=== PATIENT | male | born 1950 | race Caucasian/White ===

== ENCOUNTER 2020-06-25 11:22 | Inpatient (IN) | payer MEDICARE, MEDICAID ==
--- NOTE | 2020-06-25 11:23 | EDM.PDOC ---
ED HPI GENERAL MEDICAL PROBLEM - General Chief Complaint: Respiratory Problem Stated Complaint: IN BY AMBULANCE Time Seen by Provider: 06/25/20 11:23 Source of Information: Reports: Patient, EMS, RN, RN Notes Reviewed History Limitations: Reports: No Limitations - History of Present Illness INITIAL COMMENTS - FREE TEXT/NARRATIVE: Pt arrives to ER with complaints of increased shortness of breath worsening over the past 1 week. Pt is on continuous supplemental home oxygen at 5L/min. Pt states he was unable to get O2 saturation above 90% today. EMS arrived and found pt to be 82% on 5L, and put him on a non rebreather at 12L and was able to get him to 99%. He said this morning he felt as he couldn't catch his breath and felt like he was "in trouble" respiratory quinonez. Denies chest pain. Admits to some increasing lower extremity edema. Denies fever, chills, cough, or any COVID exposures. Onset: Gradual Duration: Week(s): (1), Constant, Getting Worse Location: Reports: Chest, Generalized Severity: Moderate Improves with: Reports: None Worsens with: Reports: Other (Activity) Associated Symptoms: Reports: No Other Symptoms Treatments [employer]: Reports: Breathing Treatments, Oxygen - Related Data Allergies Allergy/AdvReac Type Severity Reaction Status Date / Time No Known Allergies Allergy Verified 06/25/20 12:21 Past Medical History Cardiovascular History: Reports: CAD, Heart Failure, Hypertension Respiratory History: Reports: Asthma, COPD (Continuous supplemental oxygen dependent at 5L/min.), SOB Gastrointestinal History: Reports: Fatty Liver Genitourinary History: Reports: Chronic Renal Insuffiency, Renal Disease Endocrine/Metabolic History: Reports: Obesity/BMI 30+ Social & Family History - Family History Family Medical History: Noncontributory - Tobacco Use Smoking Status *Q: Former Smoker Tobacco Use Within Last Twelve Months: Cigarettes - Living Situation & Occupation Occupation: Retired ED ROS GENERAL - Review of Systems Review Of Systems: Comprehensive ROS is negative, except as noted in HPI. ED EXAM, GENERAL - Physical Exam Exam: See Below Exam Limited By: No Limitations General Appearance: Alert, No Apparent Distress, Other (Chronically ill but non- toxic appearing) Eye Exam: Bilateral Eye: Normal Inspection Ears: Hearing Grossly Normal Nose: Normal Inspection Throat/Mouth: Normal Inspection, Normal Lips, Normal Voice, No Airway Compromise Head: Atraumatic, Normocephalic Neck: Normal Inspection, Non-Tender Respiratory/Chest: No Respiratory Distress, No Accessory Muscle Use, Chest Non- Tender, Decreased Breath Sounds, Wheezing. No: Crackles, Rales, Rhonchi, Stridor Cardiovascular: Regular Rate, Rhythm, Other (+1 B/L lower extremity pitting edema L>R with a compression stocking on the left leg.) GI/Abdominal: Normal Bowel Sounds, Soft, Non-Tender, Other (Umbilical piercing). No: Guarding, Rigid, Rebound (Male) Exam: Deferred Rectal (Males) Exam: Deferred Back Exam: Normal Inspection Extremities: Pedal Edema. No: Joint Swelling Neurological: Alert, Oriented, No Motor/Sensory Deficits Psychiatric: Normal Mood, Flat Affect Skin Exam: Warm, Dry, Intact, Normal Color, No Rash EKG INTERPRETATION EKG Date: 06/25/20 Time: 11:53 Rhythm: Other (SR) Rate (Beats/Min): 85 [place]: Normal P-Wave: Present QRS: Wide (nonspecific IVCD) ST-T: Normal QT: Normal Comparison: NA - No Prior EKG EKG Interpretation Comments: No acute ischemic changes. Course - Vital Signs Last Recorded V/S: Last Vital Signs Temp 98.9 F 06/25/20 11:12 Pulse 90 06/25/20 12:12 Resp 28 H 06/25/20 11:12 BP 143/66 H 06/25/20 11:12 Pulse Ox 95 06/25/20 11:12 - Orders/Labs/Meds Orders: Active Orders 24 hr Category Date Time Status EKG 12 Lead [EKG Documentation Completion] [RC] STAT Care 06/25/20 11:38 Active Peripheral IV Care [RC] . DIRECTED Care 06/25/20 11:24 Active RT Aerosol Therapy [RC] ASDIRECTED Care 06/25/20 11:41 Active CULTURE BLOOD [BC] Stat Lab 06/25/20 12:00 Received CULTURE BLOOD [BC] Stat Lab 06/25/20 12:04 Received Sodium Chloride 0.9% [Saline Flush] Med 06/25/20 11:24 Active 10 ml FLUSH ASDIRECTED PRN Blood Culture x2 Reflex Set [OM.PC] Stat Oth 06/25/20 11:24 Ordered Peripheral IV Insertion Adult [OM.PC] Stat Oth 06/25/20 11:24 Ordered Medication Orders Sodium Chloride (Saline Flush) 10 ml FLUSH ASDIRECTED PRN PRN Reason: Keep Vein Open Last Admin: 06/25/20 12:25 Dose: 10 ml Documented by: MORENA Labs: Laboratory Tests 06/25/20 06/25/20 06/25/20 Range/Units 11:18 12:00 12:00 WBC 9.2 (5.0-10.0) 10^3/uL RBC 3.65 L (4.6-6.2) 10^6/uL Hgb 11.2 L (14.0-18.0) g/dL Hct 34.1 L (40.0-54.0) % MCV 93.4 (80-100) fL MCH 30.7 (27.0-34.0) pg MCHC 32.8 L (33.0-35.0) g/dL Plt Count 178 (150-450) 10^3/uL Neut % (Auto) 91.4 H (42.2-75.2) % Lymph % (Auto) 2.1 L (20.5-50.1) % [place] % (Auto) 6.0 (2-8) % Eos % (Auto) 0.2 L (1.0-3.0) % Baso % (Auto) 0.3 (0.0-1.0) % Sodium 129 L (136-145) mmol/L Potassium 5.4 H (3.5-5.1) mmol/L Chloride 93 L (98-107) mmol/L Carbon Dioxide 28 (21-32) mmol/L Anion Gap 13.4 H (7-13) mEq/L BUN 42 H (7-18) mg/dL Creatinine 3.07 H (0.70-1.30) mg/dL Est Cr Clr Drug Dosing TNP Estimated GFR (MDRD) 20 BUN/Creatinine Ratio 13.7 (No establ ref range) Glucose 98 (74-99) mg/dL Lactic Acid (0.4-2.0) mmol/L Calcium 9.1 (8.5-10.1) mg/dL Total Bilirubin 0.8 (0.2-1.0) mg/dL AST 18 (15-37) U/L ALT 21 (16-63) U/L Alkaline Phosphatase 69 (46-116) U/L Troponin I 0.019 (0.000-0.056) ng/mL B-Natriuretic Peptide 785 H (0-100) pg/ml Total Protein 6.5 (6.4-8.2) g/dL Albumin 3.5 (3.4-5.0) g/dL Globulin 3.0 Albumin/Globulin Ratio 1.2 COVID-19 ([facility]) Negative (NEGATIVE) 06/25/20 Range/Units 12:00 WBC (5.0-10.0) 10^3/uL RBC (4.6-6.2) 10^6/uL Hgb (14.0-18.0) g/dL Hct (40.0-54.0) % MCV (80-100) fL MCH (27.0-34.0) pg MCHC (33.0-35.0) g/dL Plt Count (150-450) 10^3/uL Neut % (Auto) (42.2-75.2) % Lymph % (Auto) (20.5-50.1) % [place] % (Auto) (2-8) % Eos % (Auto) (1.0-3.0) % Baso % (Auto) (0.0-1.0) % Sodium (136-145) mmol/L Potassium (3.5-5.1) mmol/L Chloride (98-107) mmol/L Carbon Dioxide (21-32) mmol/L Anion Gap (7-13) mEq/L BUN (7-18) mg/dL Creatinine (0.70-1.30) mg/dL Est Cr Clr Drug Dosing Estimated GFR (MDRD) BUN/Creatinine Ratio (No establ ref range) Glucose (74-99) mg/dL Lactic Acid 1.0 (0.4-2.0) mmol/L Calcium (8.5-10.1) mg/dL Total Bilirubin (0.2-1.0) mg/dL AST (15-37) U/L ALT (16-63) U/L Alkaline Phosphatase (46-116) U/L Troponin I (0.000-0.056) ng/mL B-Natriuretic Peptide (0-100) pg/ml Total Protein (6.4-8.2) g/dL Albumin (3.4-5.0) g/dL Globulin Albumin/Globulin Ratio COVID-19 ([facility]) (NEGATIVE) Meds: Medications Generic Name Dose Route Start Last Admin Trade Name Freq PRN Reason Stop Dose Admin Sodium Chloride 10 ml 06/25/20 11:24 06/25/20 12:25 Saline Flush FLUSH 10 ml ASDIRECTED PRN Administration Keep Vein Open Discontinued Medications Generic Name Dose Route Start Last Admin Trade Name Freq PRN Reason Stop Dose Admin Albuterol/Ipratropium 3 ml 06/25/20 11:41 06/25/20 12:11 Duoneb 3.0-0.5 Mg/3 Ml NEB 06/25/20 11:42 3 ml ONETIME ONE Administration Methylprednisolone Sodium Succinate 125 mg 06/25/20 11:24 06/25/20 12:25 Solu-Medrol IVPUSH 06/25/20 11:25 125 mg ONETIME ONE Administration - Radiology Interpretation Free Text/Narrative:: [facility] Final Radiology Report Call: [phone] assistance Online chat: [email or web address] Name: JOSE GOMEZ Age: 69Years M Date: 06/25/2020 SSN: -- : [id number] Study: CR CHEST 1V FRONTAL Requesting Physician: LES WOODARD Images: 1 Addl Studies: Provided Clinical History: shortness of breath Contrast: Contrast Medium: Contrast Amount: Contrast Method: CONFIDENTIALITY STATEMENT This report is intended only for use by the referring physician, and only in accordance with law. If you received this in error, call [phone]. Page 1 of 1 PROCEDURE INFORMATION: Exam: XR Chest, 1 View Exam date and time: 06/25/2020 12:20 PM Age: 69 years old Clinical indication: Shortness of breath TECHNIQUE: Imaging protocol: XR of the chest Views: 1 view. COMPARISON: No relevant prior studies available. FINDINGS: Lungs: There is mild hazy appearance of the right mid and lower lung field. Pleural space: No pleural effusion. No pneumothorax. Heart/Mediastinum: . There is tortuosity and mild calcification of the aorta. There is mild cardiomegaly. Bones/joints: Unremarkable. Soft tissues: Osseous and soft tissue structures are unremarkable. IMPRESSION: 1. Cannot exclude right mid and lower lung field ground-glass infiltrates. Recommend CT chest for further characterization. 2. Mild cardiomegaly. Thank you for allowing us to participate in the care of your patient. Dictated and Authenticated by: Kisha Noel MD 06/25/2020 12:34 PM Central Time ([place] & [place]) Departure - Departure Time of Disposition: 12:54 (admitted to Dr. Valencia) Disposition: Admitted As Inpatient 68 Condition: Fair Clinical Impression: Acute exacerbation of chronic obstructive pulmonary disease (COPD) Chronic CHF (congestive heart failure) Qualifiers: Heart failure type: unspecified Qualified Code(s): I50.9 - Heart failure, unspecified CKD (chronic kidney disease) Qualifiers: Chronic kidney disease stage: unspecified stage Qualified Code(s): N18.9 - Chronic kidney disease, unspecified Acute on chronic respiratory failure Qualifiers: Respiratory failure complication: hypoxia Qualified Code(s): J96.21 - Acute and chronic respiratory failure with hypoxia - Discharge Information *PRESCRIPTION DRUG MONITORING PROGRAM REVIEWED*: Not Applicable *COPY OF PRESCRIPTION DRUG MONITORING REPORT IN PATIENT JU: Not Applicable Forms: ED Department Discharge Sepsis Event Note (ED) - Focused Exam Vital Signs: Vital Signs Temp Pulse Pulse Resp BP Pulse Ox 06/25/20 12:12 90 06/25/20 11:12 98.9 F 86 28 H 143/66 H 95 - My Orders Last 24 Hours: My Active Orders 06/25/20 11:24 Peripheral IV Care [RC] . DIRECTED Sodium Chloride 0.9% [Saline Flush] 10 ml FLUSH ASDIRECTED PRN Blood Culture x2 Reflex Set [OM.PC] Stat Peripheral IV Insertion Adult [OM.PC] Stat 06/25/20 11:38 EKG 12 Lead [EKG Documentation Completion] [RC] STAT 06/25/20 11:41 RT Aerosol Therapy [RC] ASDIRECTED 06/25/20 12:00 CULTURE BLOOD [BC] Stat 06/25/20 12:04 CULTURE BLOOD [BC] Stat - Assessment/Plan Last 24 Hours: My Active Orders 06/25/20 11:24 Peripheral IV Care [RC] . DIRECTED Sodium Chloride 0.9% [Saline Flush] 10 ml FLUSH ASDIRECTED PRN Blood Culture x2 Reflex Set [OM.PC] Stat Peripheral IV Insertion Adult [OM.PC] Stat 06/25/20 11:38 EKG 12 Lead [EKG Documentation Completion] [RC] STAT 06/25/20 11:41 RT Aerosol Therapy [RC] ASDIRECTED 06/25/20 12:00 CULTURE BLOOD [BC] Stat 06/25/20 12:04 CULTURE BLOOD [BC] Stat
[2020-06-25] MEDS ORDERED: methylPREDNISolone Sodium Succinate 125 MG/2 ML SDV IVPUSH ONE (11:24)
[2020-06-25] MEDS ORDERED: Sodium Chloride 0.9% 10 ML Syringe FLUSH PRN (11:24)
[2020-06-25] MEDS ORDERED: Albuterol/Ipratropium 3.0-0.5 MG/3 ML Neb Soln NEB ONE (11:41)
[2020-06-25 12:32] LABS: ANION GAP 13.4 mEq/L (7-13); CHLORIDE,CL 93 mmol/L (98-107); SODIUM,NA 129 mmol/L (136-145)
--- NOTE | 2020-06-25 12:35 | CR ---
PROCEDURE INFORMATION: Exam: XR Chest, 1 View Exam date and time: 06/25/2020 12:20 PM Age: 69 years old Clinical indication: Shortness of breath TECHNIQUE: Imaging protocol: XR of the chest Views: 1 view. COMPARISON: No relevant prior studies available. FINDINGS: Lungs: There is mild hazy appearance of the right mid and lower lung field. Pleural space: No pleural effusion. No pneumothorax. Heart/Mediastinum: . There is tortuosity and mild calcification of the aorta. There is mild cardiomegaly. Bones/joints: Unremarkable. Soft tissues: Osseous and soft tissue structures are unremarkable. IMPRESSION: 1. Cannot exclude right mid and lower lung field ground-glass infiltrates. Recommend CT chest for further characterization. 2. Mild cardiomegaly.
[2020-06-25] MEDS ORDERED: Albuterol/Ipratropium 3.0-0.5 MG/3 ML Neb Soln NEB PRN (13:29)
[2020-06-25] MEDS ORDERED: Zolpidem 5 MG Tab PO PRN (13:54)
[2020-06-25] MEDS ORDERED: Ondansetron 4 MG Tab.DIS PO PRN (13:54)
--- NOTE | 2020-06-25 14:06 | PCM.HP ---
H&P History of Present Illness - General Date of Service: 06/25/20 Admit Problem/Dx: Admission Diagnosis/Problem Admission Diagnosis/Problem COPD, Severe chronic obstructive pulmonary disease Source of Information: Patient - History of Present Illness Initial Comments - Free Text/Narative: 69-year-old gentleman with a chronic hypoxemic respiratory failure requiring 5 L nasal cannula oxygen. The patient has COPD, chronic lower extremity edema. Presented with worsening shortness of breath over the period of weeks. There is no associated chest pain, fever, cough. He has no pulmonary medicine provider. He also has chronic kidney disease. He was told that he is close to dialysis. Has been taking diuretics but despite that his legs are more swollen lately. - Related Data Allergies/Adverse Reactions: Allergies Allergy/AdvReac Type Severity Reaction Status Date / Time No Known Allergies Allergy Verified 06/25/20 13:31 Home Medications: Home Meds Albuterol Sulfate [Albuterol Sulfate Hfa] 1 - 2 puff IH Q4HR PRN 06/25/20 [History] Allopurinol [Zyloprim] 300 mg PO DAILY 06/25/20 [History] Aspirin 325 mg PO DAILY 06/25/20 [History] Clopidogrel Bisulfate [Clopidogrel] 75 mg PO DAILY 06/25/20 [History] Cyanocobalamin (Vitamin B-12) [B-12] 1,000 mcg PO BID 06/25/20 [History] Furosemide 40 mg PO BID 06/25/20 [History] Losartan Potassium 100 mg PO DAILY 06/25/20 [History] Magnesium Oxide [Magnesium] 400 mg PO BID 06/25/20 [History] Mometasone/Formoterol [Dulera 50 Mcg-5 Mcg Inhaler] 1 puff IH BID 06/25/20 [History] Potassium Chloride [Klor-Con 10] 20 meq PO BID 06/25/20 [History] Valsartan 160 mg PO DAILY 06/25/20 [History] acetaZOLAMIDE [Acetazolamide] 125 mg PO .48HOURS 06/25/20 [History] amLODIPine Besylate [Amlodipine Besylate] 10 mg PO DAILY 06/25/20 [History] predniSONE [Prednisone] 5 mg PO DAILY 06/25/20 [History] Past Medical History Cardiovascular History: Reports: CAD, Heart Failure, Hypertension Respiratory History: Reports: Asthma, COPD, SOB Gastrointestinal History: Reports: Fatty Liver Genitourinary History: Reports: Chronic Renal Insuffiency, Renal Disease Endocrine/Metabolic History: Reports: Obesity/BMI 30+ - Past Surgical History GI Surgical History: Reports: Appendectomy Social & Family History - Family History Family Medical History: Noncontributory - Tobacco Use Smoking Status *Q: Never Smoker - Caffeine Use Caffeine Use: Reports: Coffee - Living Situation & Occupation Occupation: Retired H&P Review of Systems - Review of Systems: Review Of Systems: See Below General: Denies: Fever, Chills Pulmonary: Reports: Shortness of Breath, Cough (Chronic). Denies: Sputum Cardiovascular: Reports: Dyspnea on Exertion, Edema. Denies: Chest Pain, Palpitations Gastrointestinal: Denies: Abdominal Pain Genitourinary: Denies: Dysuria Neurological: Denies: Confusion Exam - Exam Exam: See Below - Vital Signs Vital Signs: Last Vital Signs Temp 98.4 F 06/25/20 13:30 Pulse 98 06/25/20 13:30 Resp 24 H 06/25/20 13:30 BP 127/65 06/25/20 13:30 Pulse Ox 90 L 06/25/20 13:55 Weight: 200 lb 3.2 oz - Exam Quality Assessment: Supplemental Oxygen General: Alert, Oriented Lungs: Normal Respiratory Effort, Decreased Breath Sounds. No: Rales, Wheezing Cardiovascular: Regular Rate, Regular Rhythm GI/Abdominal Exam: Normal Bowel Sounds, Soft, Non-Tender Extremities: Pedal Edema (2+ bilateral) Neuro Extensive - Mental Status: Alert, Oriented x3, Normal Mood/Affect Psychiatric: Alert, Normal Mood - Patient Data Lab Results Last 24 hrs: Laboratory Results - last 24 hr 06/25/20 06/25/20 06/25/20 Range/Units 11:18 12:00 12:00 WBC 9.2 (5.0-10.0) 10^3/uL RBC 3.65 L (4.6-6.2) 10^6/uL Hgb 11.2 L (14.0-18.0) g/dL Hct 34.1 L (40.0-54.0) % MCV 93.4 (80-100) fL MCH 30.7 (27.0-34.0) pg MCHC 32.8 L (33.0-35.0) g/dL Plt Count 178 (150-450) 10^3/uL Neut % (Auto) 91.4 H (42.2-75.2) % Lymph % (Auto) 2.1 L (20.5-50.1) % [place] % (Auto) 6.0 (2-8) % Eos % (Auto) 0.2 L (1.0-3.0) % Baso % (Auto) 0.3 (0.0-1.0) % Sodium 129 L (136-145) mmol/L Potassium 5.4 H (3.5-5.1) mmol/L Chloride 93 L (98-107) mmol/L Carbon Dioxide 28 (21-32) mmol/L Anion Gap 13.4 H (7-13) mEq/L BUN 42 H (7-18) mg/dL Creatinine 3.07 H (0.70-1.30) mg/dL Est Cr Clr Drug Dosing TNP Estimated GFR (MDRD) 20 BUN/Creatinine Ratio 13.7 (No establ ref range) Glucose 98 (74-99) mg/dL Lactic Acid (0.4-2.0) mmol/L Calcium 9.1 (8.5-10.1) mg/dL Total Bilirubin 0.8 (0.2-1.0) mg/dL AST 18 (15-37) U/L ALT 21 (16-63) U/L Alkaline Phosphatase 69 (46-116) U/L Troponin I 0.019 (0.000-0.056) ng/mL B-Natriuretic Peptide 785 H (0-100) pg/ml Total Protein 6.5 (6.4-8.2) g/dL Albumin 3.5 (3.4-5.0) g/dL Globulin 3.0 Albumin/Globulin Ratio 1.2 COVID-19 ([facility]) Negative (NEGATIVE) 06/25/20 Range/Units 12:00 WBC (5.0-10.0) 10^3/uL RBC (4.6-6.2) 10^6/uL Hgb (14.0-18.0) g/dL Hct (40.0-54.0) % MCV (80-100) fL MCH (27.0-34.0) pg MCHC (33.0-35.0) g/dL Plt Count (150-450) 10^3/uL Neut % (Auto) (42.2-75.2) % Lymph % (Auto) (20.5-50.1) % [place] % (Auto) (2-8) % Eos % (Auto) (1.0-3.0) % Baso % (Auto) (0.0-1.0) % Sodium (136-145) mmol/L Potassium (3.5-5.1) mmol/L Chloride (98-107) mmol/L Carbon Dioxide (21-32) mmol/L Anion Gap (7-13) mEq/L BUN (7-18) mg/dL Creatinine (0.70-1.30) mg/dL Est Cr Clr Drug Dosing Estimated GFR (MDRD) BUN/Creatinine Ratio (No establ ref range) Glucose (74-99) mg/dL Lactic Acid 1.0 (0.4-2.0) mmol/L Calcium (8.5-10.1) mg/dL Total Bilirubin (0.2-1.0) mg/dL AST (15-37) U/L ALT (16-63) U/L Alkaline Phosphatase (46-116) U/L Troponin I (0.000-0.056) ng/mL B-Natriuretic Peptide (0-100) pg/ml Total Protein (6.4-8.2) g/dL Albumin (3.4-5.0) g/dL Globulin Albumin/Globulin Ratio COVID-19 ([facility]) (NEGATIVE) Result Diagrams: 06/25/20 12:00 06/25/20 12:00 - Problem List (1) Acute congestive heart failure SNOMED Code(s): 77160102 ICD Code: I50.9 - HEART FAILURE, UNSPECIFIED Status: Acute Current Visit: Yes (2) HTN (hypertension) SNOMED Code(s): 26257262 ICD Code: I10 - ESSENTIAL (PRIMARY) HYPERTENSION Status: Acute Current Visit: Yes (3) CKD (chronic kidney disease) stage 3, GFR 30-59 ml/min SNOMED Code(s): 452160111 ICD Code: N18.3 - CHRONIC KIDNEY DISEASE, STAGE 3 (MODERATE) Status: Acute Current Visit: Yes (4) Hyponatremia SNOMED Code(s): 71782423 ICD Code: E87.1 - HYPO-OSMOLALITY AND HYPONATREMIA Status: Acute Current Visit: Yes (5) Hyperkalemia SNOMED Code(s): 31409597 ICD Code: E87.5 - HYPERKALEMIA Status: Acute Current Visit: Yes (6) CAD (coronary artery disease) SNOMED Code(s): 56572390 ICD Code: I25.10 - ATHSCL HEART DISEASE OF [place] CORONARY ARTERY W/O ANG PCTRS Status: Acute Current Visit: Yes (7) Acute exacerbation of chronic obstructive pulmonary disease (COPD) SNOMED Code(s): 890470368 ICD Code: J44.1 - CHRONIC OBSTRUCTIVE PULMONARY DISEASE W (ACUTE) EXACERBATION Status: Acute Current Visit: No (8) Acute on chronic respiratory failure SNOMED Code(s): 46590167 ICD Code: J96.20 - ACUTE AND CHR RESP FAILURE, UNSP W HYPOXIA OR HYPERCAPNIA Status: Acute Current Visit: No Qualifiers: Respiratory failure complication: hypoxia Qualified Code(s): J96.21 - Acute and chronic respiratory failure with hypoxia (9) CKD (chronic kidney disease) SNOMED Code(s): 012954042 ICD Code: N18.9 - CHRONIC KIDNEY DISEASE, UNSPECIFIED Status: Acute Current Visit: No Qualifiers: Chronic kidney disease stage: unspecified stage Qualified Code(s): N18.9 - Chronic kidney disease, unspecified Problem List Initiated/Reviewed/Updated: Yes Orders Last 24hrs: Active Orders 24 hr Category Date Time Status Admission Diagnosis [ADT] Stat ADT 06/25/20 13:02 Ordered Admission Status [Patient Status] [ADT] Routine ADT 06/25/20 13:02 Active Antiembolic Devices [RC] PER UNIT ROUTINE Care 06/25/20 13:55 Ordered EKG 12 Lead [EKG Documentation Completion] [RC] STAT Care 06/25/20 11:38 Active Oxygen Therapy [RC] PRN Care 06/25/20 13:54 Ordered RT Aerosol Therapy [RC] ASDIRECTED Care 06/25/20 11:41 Active RT Aerosol Therapy [RC] ASDIRECTED Care 06/25/20 13:30 Active RT Aerosol Therapy [RC] ASDIRECTED Care 06/25/20 13:30 Active Up With Assistance [RC] ASDIRECTED Care 06/25/20 13:54 Ordered VTE/DVT Education [RC] PER UNIT ROUTINE Care 06/25/20 13:54 Ordered Vital Signs [RC] Q4H Care 06/25/20 13:54 Ordered 2 Gram Sodium Diet [DIET] Diet 06/25/20 Dinner Ordered Echo Comp wo Cont [US] Routine Exams 06/25/20 13:52 Ordered Venous Doppler Lwr Ext Bi [US] Routine Exams 06/25/20 13:50 Ordered BASIC METABOLIC PANEL,BMP [CHEM] AM Lab 06/26/20 05:11 Ordered CULTURE BLOOD [BC] Stat Lab 06/25/20 12:00 Received CULTURE BLOOD [BC] Stat Lab 06/25/20 12:04 Received CULTURE BLOOD [BC] Stat Lab 06/25/20 13:58 Ordered CULTURE BLOOD [BC] Stat Lab 06/25/20 13:58 Ordered CULTURE SPUTUM + SMEAR [RM] Routine Lab 06/25/20 13:58 Ordered DD [D-DIMER QUANTITATIVE] [COAG] Routine Lab 06/25/20 13:57 Ordered Acetaminophen [TylenoL] Med 06/25/20 13:54 Ordered 650 mg PO Q4H PRN Albuterol/Ipratropium [DuoNeb 3.0-0.5 MG/3 ML] Med 06/25/20 13:29 Active 3 ml NEB Q2H PRN Albuterol/Ipratropium [DuoNeb 3.0-0.5 MG/3 ML] Med 06/25/20 18:00 Active 3 ml NEB Q6HRRT Aspirin Med 06/26/20 09:00 Ordered 325 mg PO DAILY Azithromycin [Zithromax] 500 mg Med 06/25/20 14:00 Ordered Sodium Chloride 0.9% [Normal Saline (AdvBag)] 250 ml IV Q24H Budesonide [Pulmicort] Med 06/25/20 18:00 Active 0.5 mg NEB BIDRT Clopidogrel [Plavix] Med 06/26/20 09:00 Ordered 75 mg PO DAILY Cyanocobalamin (Vitamin B12) [Vitamin B12] Med 06/25/20 21:00 Ordered 1,000 mcg PO BID Docusate Sodium [Colace] Med 06/25/20 13:54 Ordered 100 mg PO BID PRN Furosemide [Lasix] Med 06/25/20 14:00 Ordered 40 mg IV Q8H Heparin Sodium Med 06/25/20 14:00 Ordered 5,000 units SUBCUT Q8HR Losartan Potassium [Losartan Potassium] Med 06/26/20 09:00 Ordered 100 mg PO DAILY Ondansetron [Zofran ODT] Med 06/25/20 13:54 Ordered 4 mg PO Q6H PRN Sodium Chloride 0.9% [Saline Flush] Med 06/25/20 11:24 Active 10 ml FLUSH ASDIRECTED PRN Sodium Chloride 0.9% [Saline Flush] Med 06/25/20 13:54 Ordered 10 ml FLUSH ASDIRECTED PRN Zolpidem [Ambien] Med 06/25/20 13:54 Ordered 5 mg PO BEDTIME PRN acetaZOLAMIDE [Acetazolamide] Med 06/25/20 13:45 Ordered 125 mg PO .48HOURS allopurinoL [Zyloprim] Med 06/26/20 09:00 Ordered 300 mg PO DAILY amLODIPine Besylate [Amlodipine Besylate] Med 06/26/20 09:00 Ordered 10 mg PO DAILY cefTRIAXone [Rocephin] 1 gm Med 06/25/20 14:00 Ordered Sodium Chloride 0.9% [Normal Saline] 50 ml IV Q24H Antiembolic Hose [OM.PC] Per Unit Routine Oth 06/25/20 13:54 Ordered Blood Culture x2 Reflex Set [OM.PC] Stat Oth 06/25/20 11:24 Ordered Blood Culture x2 Reflex Set [OM.PC] Stat Oth 06/25/20 13:58 Ordered Peripheral IV Insertion Adult [OM.PC] Stat Oth 06/25/20 11:24 Ordered Saline Lock Insert [OM.PC] Routine Oth 06/25/20 13:54 Ordered Resuscitation Status Routine Resus Stat 06/25/20 13:54 Ordered Medication Orders Acetaminophen (Tylenol) 650 mg PO Q4H PRN PRN Reason: Pain (Mild 1-3)/fever Albuterol/Ipratropium (Duoneb 3.0-0.5 Mg/3 Ml) 3 ml NEB Q6HRRT [place] Albuterol/Ipratropium (Duoneb 3.0-0.5 Mg/3 Ml) 3 ml NEB Q2H PRN PRN Reason: sob Allopurinol (Zyloprim) 300 mg PO DAILY [place] Aspirin (Aspirin) 325 mg PO DAILY [place] Budesonide (Pulmicort) 0.5 mg NEB BIDRT [place] Clopidogrel Bisulfate (Plavix) 75 mg PO DAILY [facility] Cyanocobalamin (Vitamin B12) 1,000 mcg PO BID [facility] Docusate Sodium (Colace) 100 mg PO BID PRN PRN Reason: Constipation Furosemide (Lasix) 40 mg IV Q8H [facility] Heparin Sodium (Porcine) (Heparin Sodium) 5,000 units SUBCUT Q8HR [facility] Azithromycin 500 mg/ Sodium (Chloride) 250 mls @ 250 mls/hr IV Q24H [place] Ceftriaxone Sodium 1 gm/ (Sodium Chloride) 50 mls @ 100 mls/hr IV Q24H [place] Non-Formulary Medication (Acetazolamide [Acetazolamide]) 125 mg PO .48HOURS [place] Non-Formulary Medication (Amlodipine Besylate [Amlodipine Besylate]) 10 mg PO DAILY [place] Non-Formulary Medication (Losartan Potassium [Losartan Potassium]) 100 mg PO DAILY [facility] Ondansetron HCl (Zofran Odt) 4 mg PO Q6H PRN PRN Reason: nausea, able to take PO Sodium Chloride (Saline Flush) 10 ml FLUSH ASDIRECTED PRN PRN Reason: Keep Vein Open Last Admin: 06/25/20 12:25 Dose: 10 ml Documented by: MORENA Sodium Chloride (Saline Flush) 10 ml FLUSH ASDIRECTED PRN PRN Reason: Keep Vein Open Zolpidem Tartrate (Ambien) 5 mg PO BEDTIME PRN PRN Reason: Sleep Assessment/Plan Comment:: 69-year-old gentleman with a chronic hypoxemic respiratory failure requiring 5 L nasal cannula oxygen. The patient has COPD, chronic lower extremity edema. Presented with worsening shortness of breath over the period of weeks. There is no associated chest pain, fever, cough. He has no pulmonary medicine provider. He also has chronic kidney disease. He was told that he is close to dialysis. Has been taking diuretics but despite that his legs are more swollen lately. Acute on chronic hypoxemic respiratory failure. The patient has been using 5 L nasal cannula oxygen but significantly hypoxemic on that level. Well supplement oxygen as needed Concern for acute COPD exacerbation With chronic prednisone 5 mg use Well treat with IV Solu-Medrol Use Pulmicort DuoNeb as needed and scheduled CAD Likely acute congestive heart failure exacerbation, per records (2014) diastolic dysfunction Increasing lower extremity edema, elevated BNP Will obtain echocardiogram for further characterization The patient has not had cardiology evaluation in the past Well start IV diuretics Continue acetazolamide Continue aspirin, Plavix, losartan Follow electrolytes and renal function Acute pulmonary embolism is less likely CT to evaluate would be risky with the renal failure Well obtain DDimer Chest x-rays questioning possible groundglass opacities, pneumonia Clinically does not appear to have ongoing infection We will obtain sputum culture, blood culture Well monitor closely in the meantime start ceftriaxone and azithromycin hyperkalemia, hyponatremia Hold potassium supplement Will follow with diuretics Chronic kidney disease stage 3-4 Monitor with diuretics Hypertension Continue Norvasc, losartan DVT prophylaxis with subcutaneous heparin
[2020-06-25] MEDS ORDERED: Furosemide 40 MG/4 ML VIAL IV SCH (15:00)
[2020-06-25] MEDS: Heparin Sodium 5,000 Units/ML Vial SUBCUT SCH ×2 (15:22→21:18)
[2020-06-25] MEDS: cefTRIAXone 1 GM in Sodium Chloride 0.9% 50 ML IV SCH (16:08)
[2020-06-25] MEDS: Furosemide 40 MG/4 ML VIAL IV SCH ×2 (16:09→21:16)
[2020-06-25] MEDS: Azithromycin 500 MG in Sodium Chloride 0.9% 250 ML IV SCH (17:04)
[2020-06-25] MEDS: Budesonide 0.5 MG/2 ML Neb Susp NEB SCH (18:13)
[2020-06-25] MEDS: Albuterol/Ipratropium 3.0-0.5 MG/3 ML Neb Soln NEB SCH (18:13)
[2020-06-25] MEDS: Cyanocobalamin (Vitamin B12) 1,000 MCG Tab PO SCH (21:17)
[2020-06-26] MEDS: Albuterol/Ipratropium 3.0-0.5 MG/3 ML Neb Soln NEB SCH ×4 (01:58→17:23)
[2020-06-26] MEDS: Furosemide 40 MG/4 ML VIAL IV SCH ×3 (05:21→21:51)
[2020-06-26] MEDS: Heparin Sodium 5,000 Units/ML Vial SUBCUT SCH ×3 (05:22→21:51)
[2020-06-26 06:43] LABS: ANION GAP 13.2 mEq/L (7-13)
[2020-06-26] MEDS: Budesonide 0.5 MG/2 ML Neb Susp NEB SCH ×2 (07:40→17:24)
[2020-06-26] MEDS: amLODIPine 5 MG Tab PO SCH (08:51)
[2020-06-26] MEDS: acetaZOLAMIDE 250 MG Tab PO SCH (08:51)
[2020-06-26] MEDS: Cyanocobalamin (Vitamin B12) 1,000 MCG Tab PO SCH ×2 (08:51→21:48)
[2020-06-26] MEDS: Clopidogrel 75 MG Tab PO SCH (08:51)
[2020-06-26] MEDS: Losartan 50 MG Tab PO SCH (08:51)
[2020-06-26] MEDS ORDERED: Allopurinol 300 MG Tab PO SCH (09:00)
--- NOTE | 2020-06-26 12:20 | PCM.PN ---
- General Info Date of Service: 06/26/20 Admission Dx/Problem (Free Text): Admission Diagnosis/Problem Admission Diagnosis/Problem COPD, Severe chronic obstructive pulmonary disease Subjective Update: Shortness of breath is still moderate, worse with activity. Oxygen use is somewhat better and now down to 8 L/m. Initially after admission he was at 10 but his baseline is 5 L/m. No associated chest pain Lower extremity edema has improved but still present Duration of illness is days. No associated fever or chills. - Review of Systems General: Denies: Fever Pulmonary: Reports: Shortness of Breath Cardiovascular: Reports: Edema Genitourinary: Denies: Dysuria Neurological: Denies: Confusion - Patient Data Vitals - Most Recent: Last Vital Signs Temp 97.2 F 06/26/20 08:00 Pulse 94 06/26/20 08:00 Resp 20 06/26/20 08:00 BP 138/76 06/26/20 08:51 Pulse Ox 94 L 06/26/20 08:00 Weight - Most Recent: 199 lb I&O - Last 24 Hours: Intake & Output 06/25/20 06/26/20 06/26/20 22:59 06:59 14:59 Intake Total 320 240 Balance 320 240 Lab Results Last 24 Hours: Laboratory Results - last 24 hr 06/25/20 06/25/20 06/25/20 Range/Units 12:00 12:00 12:00 D-Dimer, Quantitative 903 H (0-400) ng/mL Sodium 129 L (136-145) mmol/L Potassium 5.4 H (3.5-5.1) mmol/L Chloride 93 L (98-107) mmol/L Carbon Dioxide 28 (21-32) mmol/L Anion Gap 13.4 H (7-13) mEq/L BUN 42 H (7-18) mg/dL Creatinine 3.07 H (0.70-1.30) mg/dL Est Cr Clr Drug Dosing TNP Estimated GFR (MDRD) 20 BUN/Creatinine Ratio 13.7 (No establ ref range) Glucose 98 (74-99) mg/dL Lactic Acid 1.0 (0.4-2.0) mmol/L Calcium 9.1 (8.5-10.1) mg/dL Total Bilirubin 0.8 (0.2-1.0) mg/dL AST 18 (15-37) U/L ALT 21 (16-63) U/L Alkaline Phosphatase 69 (46-116) U/L Troponin I 0.019 (0.000-0.056) ng/mL B-Natriuretic Peptide 785 H (0-100) pg/ml Total Protein 6.5 (6.4-8.2) g/dL Albumin 3.5 (3.4-5.0) g/dL Globulin 3.0 Albumin/Globulin Ratio 1.2 06/26/20 Range/Units 05:45 D-Dimer, Quantitative (0-400) ng/mL Sodium 133 L (136-145) mmol/L Potassium 5.2 H (3.5-5.1) mmol/L Chloride 97 L (98-107) mmol/L Carbon Dioxide 28 (21-32) mmol/L Anion Gap 13.2 H (7-13) mEq/L BUN 50 H (7-18) mg/dL Creatinine 3.14 H (0.70-1.30) mg/dL Est Cr Clr Drug Dosing 19.12 Estimated GFR (MDRD) 20 BUN/Creatinine Ratio (No establ ref range) Glucose 176 H (74-99) mg/dL Lactic Acid (0.4-2.0) mmol/L Calcium 8.9 (8.5-10.1) mg/dL Total Bilirubin (0.2-1.0) mg/dL AST (15-37) U/L ALT (16-63) U/L Alkaline Phosphatase (46-116) U/L Troponin I (0.000-0.056) ng/mL B-Natriuretic Peptide (0-100) pg/ml Total Protein (6.4-8.2) g/dL Albumin (3.4-5.0) g/dL Globulin Albumin/Globulin Ratio Juan Results Last 24 Hours: Microbiology 06/25/20 12:04 Aerobic Blood Culture - Preliminary Blood - Venous - Lab Draw NO GROWTH AFTER 1 DAY Anaerobic Blood Culture - Preliminary NO GROWTH AFTER 1 DAY 06/25/20 12:00 Aerobic Blood Culture - Preliminary Blood - Venous NO GROWTH AFTER 1 DAY Anaerobic Blood Culture - Preliminary NO GROWTH AFTER 1 DAY Med Orders - Current: Current Medications Acetaminophen (Tylenol) 650 mg PO Q4H PRN PRN Reason: Pain (Mild 1-3)/fever Acetazolamide (Diamox) [address] [facility] Last Admin: 06/26/20 08:51 Dose: 125 mg Documented by: Albuterol/Ipratropium (Duoneb 3.0-0.5 Mg/3 Ml) [address] [facility] Last Admin: 06/26/20 01:58 Dose: 3 ml Documented by: Albuterol/Ipratropium (Duoneb 3.0-0.5 Mg/3 Ml) 3 ml NEB Q2H PRN PRN Reason: sob Last Admin: 06/25/20 21:25 Dose: 3 ml Documented by: Amlodipine Besylate (Norvasc) [address] [facility] Last Admin: 06/26/20 08:51 Dose: 10 mg Documented by: Aspirin (Aspirin) [address] [facility] Budesonide (Pulmicort) 0.[address] [facility] Last Admin: 06/25/20 18:13 Dose: 0.5 mg Documented by: Clopidogrel Bisulfate (Plavix) [address] [facility] Last Admin: 06/26/20 08:51 Dose: 75 mg Documented by: Cyanocobalamin (Vitamin B12) 1,[address] [facility] Last Admin: 06/26/20 08:51 Dose: 1,000 mcg Documented by: Docusate Sodium (Colace) 100 mg PO BID PRN PRN Reason: Constipation Furosemide (Lasix) [address] [facility] Last Admin: 06/26/20 05:21 Dose: 40 mg Documented by: Heparin Sodium (Porcine) (Heparin Sodium) 5,[address] [facility] Last Admin: 06/26/20 05:22 Dose: 5,000 units Documented by: Azithromycin 500 mg/ Sodium (Chloride) 250 mls @ 250 mls/hr IV Q24H [facility] Last Infusion: 06/25/20 19:00 Dose: Infused Documented by: Ceftriaxone Sodium 1 gm/ (Sodium Chloride) 50 mls @ 100 mls/hr IV Q24H [facility] Last Infusion: 06/25/20 19:12 Dose: Infused Documented by: Losartan Potassium (Cozaar) [address] [facility] Last Admin: 06/26/20 08:51 Dose: 100 mg Documented by: Ondansetron HCl (Zofran Odt) 4 mg PO Q6H PRN PRN Reason: nausea, able to take PO Sodium Chloride (Saline Flush) 10 ml FLUSH ASDIRECTED PRN PRN Reason: Keep Vein Open Zolpidem Tartrate (Ambien) 5 mg PO BEDTIME PRN PRN Reason: Sleep Discontinued Medications Albuterol/Ipratropium (Duoneb 3.0-0.5 Mg/3 Ml) 3 ml NEB ONETIME ONE Stop: 06/25/20 11:42 Last Admin: 06/25/20 12:11 Dose: 3 ml Documented by: Allopurinol (Zyloprim) [address] [facility] Last Admin: 06/26/20 12:09 Dose: Not Given Documented by: Furosemide (Lasix) [address] [facility] Last Admin: 06/25/20 17:39 Dose: Not Given Documented by: Methylprednisolone Sodium Succinate (Solu-Medrol) 125 mg IVPUSH ONETIME ONE Stop: 06/25/20 11:25 Last Admin: 06/25/20 12:25 Dose: 125 mg Documented by: Sodium Chloride (Saline Flush) 10 ml FLUSH ASDIRECTED PRN PRN Reason: Keep Vein Open Last Admin: 06/25/20 12:25 Dose: 10 ml Documented by: - Exam Quality Assessment: Supplemental Oxygen General: Alert Lungs: Normal Respiratory Effort, Decreased Breath Sounds. No: Rales, Wheezing Cardiovascular: Regular Rate, Regular Rhythm GI/Abdominal Exam: Normal Bowel Sounds, Soft, Non-Tender Extremities: Pedal Edema Skin: Warm, Dry Neurological: No New Focal Deficit Psy/Mental Status: Alert, Normal Affect, Normal Mood Sepsis Event Note - Evaluation Sepsis Screening Result: No Definite Risk - Focused Exam Vital Signs: Vital Signs Temp Pulse Pulse Resp BP BP Pulse Ox 06/26/20 08:51 138/76 06/26/20 08:00 97.2 F 94 20 138/76 94 L 06/26/20 01:00 97.1 F 93 22 H 148/71 H 96 - Problem List & Annotations (1) Acute congestive heart failure SNOMED Code(s): 61873640 Code(s): I50.9 - HEART FAILURE, UNSPECIFIED Status: Acute Current Visit: Yes (2) HTN (hypertension) SNOMED Code(s): 11217377 Code(s): I10 - ESSENTIAL (PRIMARY) HYPERTENSION Status: Acute Current Visit: Yes (3) CKD (chronic kidney disease) stage 3, GFR 30-59 ml/min SNOMED Code(s): 651313546 Code(s): N18.3 - CHRONIC KIDNEY DISEASE, STAGE 3 (MODERATE) Status: Acute Current Visit: Yes (4) Hyponatremia SNOMED Code(s): 76450271 Code(s): E87.1 - HYPO-OSMOLALITY AND HYPONATREMIA Status: Acute Current Visit: Yes (5) Hyperkalemia SNOMED Code(s): 71958871 Code(s): E87.5 - HYPERKALEMIA Status: Acute Current Visit: Yes (6) CAD (coronary artery disease) SNOMED Code(s): 92346023 Code(s): I25.10 - ATHSCL HEART DISEASE OF [place] CORONARY ARTERY W/O ANG PCTRS Status: Acute Current Visit: Yes (7) Acute exacerbation of chronic obstructive pulmonary disease (COPD) SNOMED Code(s): 261402870 Code(s): J44.1 - CHRONIC OBSTRUCTIVE PULMONARY DISEASE W (ACUTE) EXACERBATION Status: Acute Current Visit: No (8) Acute on chronic respiratory failure SNOMED Code(s): 83299562 Code(s): J96.20 - ACUTE AND CHR RESP FAILURE, UNSP W HYPOXIA OR HYPERCAPNIA Status: Acute Current Visit: No Qualifiers: Respiratory failure complication: hypoxia Qualified Code(s): J96.21 - Acute and chronic respiratory failure with hypoxia (9) CKD (chronic kidney disease) SNOMED Code(s): 523185060 Code(s): N18.9 - CHRONIC KIDNEY DISEASE, UNSPECIFIED Status: Acute Current Visit: No Qualifiers: Chronic kidney disease stage: unspecified stage Qualified Code(s): N18.9 - Chronic kidney disease, unspecified - Problem List Review Problem List Initiated/Reviewed/Updated: Yes - My Orders Last 24 Hours: My Active Orders 06/25/20 13:29 Albuterol/Ipratropium [DuoNeb 3.0-0.5 MG/3 ML] 3 ml NEB Q2H PRN 06/25/20 13:30 RT Aerosol Therapy [RC] ASDIRECTED RT Aerosol Therapy [RC] ASDIRECTED 06/25/20 13:50 Venous Doppler Lwr Ext Bi [US] Routine 06/25/20 13:52 Echo Comp wo Cont [US] Routine 06/25/20 13:54 Oxygen Therapy [RC] PRN Up With Assistance [RC] ASDIRECTED Vital Signs [RC] 04,08,12,16,20,00 Acetaminophen [TylenoL] 650 mg PO Q4H PRN Docusate Sodium [Colace] 100 mg PO BID PRN Ondansetron [Zofran ODT] 4 mg PO Q6H PRN Sodium Chloride 0.9% [Saline Flush] 10 ml FLUSH ASDIRECTED PRN Zolpidem [Ambien] 5 mg PO BEDTIME PRN Antiembolic Hose [OM.PC] Per Unit Routine Saline Lock Insert [OM.PC] Routine Resuscitation Status Routine 06/25/20 13:55 Antiembolic Devices [RC] PER UNIT ROUTINE 06/25/20 13:58 CULTURE SPUTUM + SMEAR [RM] Routine Blood Culture x2 Reflex Set [OM.PC] Stat 06/25/20 14:00 Heparin Sodium 5,000 units SUBCUT Q8HR 06/25/20 15:00 Furosemide [Lasix] 40 mg IV Q8HR cefTRIAXone [Rocephin] 1 gm Sodium Chloride 0.9% [Normal Saline] 50 ml IV Q24H 06/25/20 16:00 Azithromycin [Zithromax] 500 mg Sodium Chloride 0.9% [Normal Saline (AdvBag)] 250 ml IV Q24H 06/25/20 Dinner 2 Gram Sodium Diet [DIET] 06/25/20 18:00 Albuterol/Ipratropium [DuoNeb 3.0-0.5 MG/3 ML] 3 ml NEB Q6HRRT Budesonide [Pulmicort] 0.5 mg NEB BIDRT 06/25/20 21:00 Cyanocobalamin (Vitamin B12) [Vitamin B12] 1,000 mcg PO BID 06/26/20 09:00 Clopidogrel [Plavix] 75 mg PO DAILY Losartan [Cozaar] 100 mg PO DAILY acetaZOLAMIDE [Diamox] 125 mg PO Q48H amLODIPine [Norvasc] 10 mg PO DAILY 06/26/20 12:00 Aspirin 325 mg PO DAILY 06/27/20 05:15 BASIC METABOLIC PANEL,BMP [CHEM] AM CBC WITH AUTO DIFF [HEME] AM - Plan Plan:: 69-year-old gentleman with a chronic hypoxemic respiratory failure requiring 5 L nasal cannula oxygen. The patient has COPD, chronic lower extremity edema. Presented with worsening shortness of breath over the period of weeks. There is no associated chest pain, fever, cough. He has no pulmonary medicine provider. He also has chronic kidney disease. He was told that he is close to dialysis. Has been taking diuretics but despite that his legs are more swollen lately. Acute on chronic hypoxemic respiratory failure. The patient has been using 5 L nasal cannula oxygen but significantly hypoxemic on that level. Well supplement oxygen as needed - try to taper as possible His home oxygen concentrator only goes up to 5 Concern for acute COPD exacerbation With chronic prednisone 5 mg use Continue IV Solu-Medrol Use Pulmicort DuoNeb as needed and scheduled CAD Likely acute congestive heart failure exacerbation, per records (2014) diastolic dysfunction Increasing lower extremity edema, elevated BNP echocardiogram for further characterization is not available inpatient, will need cardiology follow-up Continue IV diuretics Continue acetazolamide Continue aspirin, Plavix, losartan Follow electrolytes and renal function Acute pulmonary embolism is less likely CT to evaluate would be risky with the renal failure We will obtain lower extremity ultrasound to rule out DVT Chest x-rays questioning possible groundglass opacities, pneumonia Clinically does not appear to have ongoing infection We will obtain sputum culture, blood culture Well monitor closely in the meantime started ceftriaxone and azithromycin hyperkalemia, hyponatremia Hold potassium supplement Will follow with diuretics Chronic kidney disease stage 3-4 Monitor with diuretics Hypertension Continue Norvasc, losartan DVT prophylaxis with subcutaneous heparin
[2020-06-26] MEDS: Aspirin 325 MG Tab PO SCH (13:51)
[2020-06-26] MEDS: Sodium Chloride 0.9% 10 ML Syringe FLUSH PRN (13:53)
[2020-06-26] MEDS: cefTRIAXone 1 GM in Sodium Chloride 0.9% 50 ML IV SCH (14:44)
[2020-06-26] MEDS: Azithromycin 500 MG in Sodium Chloride 0.9% 250 ML IV SCH (15:16)
[2020-06-27] MEDS: Albuterol/Ipratropium 3.0-0.5 MG/3 ML Neb Soln NEB SCH ×4 (01:13→18:01)
[2020-06-27] MEDS: Heparin Sodium 5,000 Units/ML Vial SUBCUT SCH ×3 (06:01→21:43)
[2020-06-27] MEDS: Furosemide 40 MG/4 ML VIAL IV SCH ×3 (06:01→21:36)
[2020-06-27 06:38] LABS: ANION GAP 14.4 mEq/L (7-13)
[2020-06-27] MEDS: Budesonide 0.5 MG/2 ML Neb Susp NEB SCH ×2 (07:35→18:01)
[2020-06-27] MEDS: Clopidogrel 75 MG Tab PO SCH (09:33)
[2020-06-27] MEDS: Cyanocobalamin (Vitamin B12) 1,000 MCG Tab PO SCH ×2 (09:33→21:35)
[2020-06-27] MEDS: Losartan 50 MG Tab PO SCH (09:33)
[2020-06-27] MEDS: Aspirin 325 MG Tab PO SCH (09:33)
[2020-06-27] MEDS: amLODIPine 5 MG Tab PO SCH (09:33)
--- NOTE | 2020-06-27 11:50 | PCM.PN ---
- General Info Date of Service: 06/27/20 Admission Dx/Problem (Free Text): Admission Diagnosis/Problem Admission Diagnosis/Problem COPD, Severe chronic obstructive pulmonary disease Subjective Update: Shortness of breath is still moderate, worse with activity. Oxygen use is somewhat better and now down to 6 L/m. Initially after admission he was at 10 but his baseline is 5 L/m. No associated chest pain No wheezing noted Lower extremity edema has improved but still present Duration of illness is days. No associated fever or chills. Functional Status: Reports: Pain Controlled, Tolerating Diet, Ambulating - Review of Systems General: Denies: Fever Pulmonary: Reports: Shortness of Breath, Cough. Denies: Sputum, Hemoptysis (Nonproductive), Wheezing Cardiovascular: Reports: Edema. Denies: Chest Pain Gastrointestinal: Denies: Abdominal Pain Genitourinary: Denies: Dysuria Neurological: Denies: Confusion - Patient Data Vitals - Most Recent: Last Vital Signs Temp 96.6 F L 06/27/20 08:00 Pulse 45 L 06/27/20 08:00 Resp 15 06/27/20 08:00 BP 131/56 L 06/27/20 09:33 Pulse Ox 89 L 06/27/20 10:49 Weight - Most Recent: 195 lb 3.2 oz I&O - Last 24 Hours: Intake & Output 06/26/20 06/27/20 06/27/20 22:59 06:59 14:59 Intake Total 2180 200 Output Total 1500 1800 1325 Balance 680 -1600 -1325 Lab Results Last 24 Hours: Laboratory Results - last 24 hr 06/27/20 06/27/20 Range/Units 05:45 05:45 WBC 8.4 (5.0-10.0) 10^3/uL RBC 3.49 L (4.6-6.2) 10^6/uL Hgb 10.7 L (14.0-18.0) g/dL Hct 34.2 L (40.0-54.0) % MCV 98.0 D (80-100) fL MCH 30.7 (27.0-34.0) pg MCHC 31.3 L (33.0-35.0) g/dL Plt Count 148 L (150-450) 10^3/uL Neut % (Auto) 82.0 H (42.2-75.2) % Lymph % (Auto) 7.6 L (20.5-50.1) % Evans % (Auto) 8.6 H (2-8) % Eos % (Auto) 1.3 (1.0-3.0) % Baso % (Auto) 0.5 (0.0-1.0) % Sodium 136 (136-145) mmol/L Potassium 4.4 (3.5-5.1) mmol/L Chloride 100 (98-107) mmol/L Carbon Dioxide 26 (21-32) mmol/L Anion Gap 14.4 H (7-13) mEq/L BUN 52 H (7-18) mg/dL Creatinine 2.70 H (0.70-1.30) mg/dL Est Cr Clr Drug Dosing 22.23 mL/min Estimated GFR (MDRD) 24 Glucose 119 H (74-99) mg/dL Calcium 8.9 (8.5-10.1) mg/dL Juan Results Last 24 Hours: Microbiology 06/25/20 12:04 Aerobic Blood Culture - Preliminary Blood - Venous - Lab Draw NO GROWTH AFTER 1 DAY Anaerobic Blood Culture - Preliminary NO GROWTH AFTER 1 DAY 06/25/20 12:00 Aerobic Blood Culture - Preliminary Blood - Venous NO GROWTH AFTER 1 DAY Anaerobic Blood Culture - Preliminary NO GROWTH AFTER 1 DAY Med Orders - Current: Current Medications Acetaminophen (Tylenol) 650 mg PO Q4H PRN PRN Reason: Pain (Mild 1-3)/fever Acetazolamide (Diamox) 125 mg PO Q48H [facility] Last Admin: 06/26/20 08:51 Dose: 125 mg Documented by: Albuterol/Ipratropium (Duoneb 3.0-0.5 Mg/3 Ml) 3 ml NEB Q6HRRT [facility] Last Admin: 06/27/20 07:35 Dose: 3 ml Documented by: Albuterol/Ipratropium (Duoneb 3.0-0.5 Mg/3 Ml) 3 ml NEB Q2H PRN PRN Reason: sob Last Admin: 06/25/20 21:25 Dose: 3 ml Documented by: Amlodipine Besylate (Norvasc) 10 mg PO DAILY [facility] Last Admin: 06/27/20 09:33 Dose: 10 mg Documented by: Aspirin (Aspirin) 325 mg PO DAILY [facility] Last Admin: 06/27/20 09:33 Dose: 325 mg Documented by: Budesonide (Pulmicort) 0.5 mg NEB BIDRT [facility] Last Admin: 06/27/20 07:35 Dose: 0.5 mg Documented by: Clopidogrel Bisulfate (Plavix) 75 mg PO DAILY [facility] Last Admin: 06/27/20 09:33 Dose: 75 mg Documented by: Cyanocobalamin (Vitamin B12) 1,000 mcg PO BID [facility] Last Admin: 06/27/20 09:33 Dose: 1,000 mcg Documented by: Docusate Sodium (Colace) 100 mg PO BID PRN PRN Reason: Constipation Furosemide (Lasix) 40 mg IV Q8HR [facility] Last Admin: 06/27/20 06:01 Dose: 40 mg Documented by: Heparin Sodium (Porcine) (Heparin Sodium) 5,000 units SUBCUT Q8HR [facility] Last Admin: 06/27/20 06:01 Dose: 5,000 units Documented by: Azithromycin 500 mg/ Sodium (Chloride) 250 mls @ 250 mls/hr IV Q24H [facility] Last Admin: 06/26/20 15:16 Dose: 175 mls/hr Documented by: Ceftriaxone Sodium 1 gm/ (Sodium Chloride) 50 mls @ 100 mls/hr IV Q24H [facility] Last Infusion: 06/26/20 15:23 Dose: Infused Documented by: Losartan Potassium (Cozaar) 100 mg PO DAILY [facility] Last Admin: 06/27/20 09:33 Dose: 100 mg Documented by: Ondansetron HCl (Zofran Odt) 4 mg PO Q6H PRN PRN Reason: nausea, able to take PO Sodium Chloride (Saline Flush) 10 ml FLUSH ASDIRECTED PRN PRN Reason: Keep Vein Open Last Admin: 06/26/20 13:53 Dose: 10 ml Documented by: Zolpidem Tartrate (Ambien) 5 mg PO BEDTIME PRN PRN Reason: Sleep Discontinued Medications Albuterol/Ipratropium (Duoneb 3.0-0.5 Mg/3 Ml) 3 ml NEB ONETIME ONE Stop: 06/25/20 11:42 Last Admin: 06/25/20 12:11 Dose: 3 ml Documented by: Allopurinol (Zyloprim) 300 mg PO DAILY [facility] Last Admin: 06/26/20 12:09 Dose: Not Given Documented by: Furosemide (Lasix) 40 mg IV Q8H [facility] Last Admin: 06/25/20 17:39 Dose: Not Given Documented by: Methylprednisolone Sodium Succinate (Solu-Medrol) 125 mg IVPUSH ONETIME ONE Stop: 06/25/20 11:25 Last Admin: 06/25/20 12:25 Dose: 125 mg Documented by: Sodium Chloride (Saline Flush) 10 ml FLUSH ASDIRECTED PRN PRN Reason: Keep Vein Open Last Admin: 06/25/20 12:25 Dose: 10 ml Documented by: - Exam General: Alert, Oriented Neck: Supple Lungs: Normal Respiratory Effort, Decreased Breath Sounds. No: Rhonchi, Wheezing Cardiovascular: Regular Rate, Regular Rhythm GI/Abdominal Exam: Normal Bowel Sounds, Soft, Non-Tender Extremities: Pedal Edema (1+ bilateral) Skin: Warm, Dry Neurological: No New Focal Deficit Psy/Mental Status: Alert, Normal Affect, Normal Mood Sepsis Event Note - Evaluation Sepsis Screening Result: No Definite Risk - Focused Exam Vital Signs: Vital Signs Temp Pulse Pulse Resp BP BP BP 06/27/20 10:49 06/27/20 09:43 06/27/20 09:33 131/56 L 06/27/20 08:00 96.6 F L 45 L 15 131/56 L 06/27/20 07:35 75 06/27/20 01:19 80 06/27/20 01:17 97.9 F 80 20 134/59 L Pulse Ox Pulse Ox 06/27/20 10:49 89 L 06/27/20 09:43 96 06/27/20 09:33 06/27/20 08:00 97 06/27/20 07:35 06/27/20 01:19 100 06/27/20 01:17 100 - Problem List & Annotations (1) Acute congestive heart failure SNOMED Code(s): 40519170 Code(s): I50.9 - HEART FAILURE, UNSPECIFIED Status: Acute Current Visit: Yes (2) HTN (hypertension) SNOMED Code(s): 38710197 Code(s): I10 - ESSENTIAL (PRIMARY) HYPERTENSION Status: Acute Current Visit: Yes (3) CKD (chronic kidney disease) stage 3, GFR 30-59 ml/min SNOMED Code(s): 357284496 Code(s): N18.3 - CHRONIC KIDNEY DISEASE, STAGE 3 (MODERATE) Status: Acute Current Visit: Yes (4) Hyponatremia SNOMED Code(s): 17062754 Code(s): E87.1 - HYPO-OSMOLALITY AND HYPONATREMIA Status: Acute Current Visit: Yes (5) Hyperkalemia SNOMED Code(s): 32199629 Code(s): E87.5 - HYPERKALEMIA Status: Acute Current Visit: Yes (6) CAD (coronary artery disease) SNOMED Code(s): 78901962 Code(s): I25.10 - ATHSCL HEART DISEASE OF [place] CORONARY ARTERY W/O ANG PCTRS Status: Acute Current Visit: Yes (7) Acute exacerbation of chronic obstructive pulmonary disease (COPD) SNOMED Code(s): 331968065 Code(s): J44.1 - CHRONIC OBSTRUCTIVE PULMONARY DISEASE W (ACUTE) EXACERBATION Status: Acute Current Visit: No (8) Acute on chronic respiratory failure SNOMED Code(s): 40948817 Code(s): J96.20 - ACUTE AND CHR RESP FAILURE, UNSP W HYPOXIA OR HYPERCAPNIA Status: Acute Current Visit: No Qualifiers: Respiratory failure complication: hypoxia Qualified Code(s): J96.21 - Acute and chronic respiratory failure with hypoxia (9) CKD (chronic kidney disease) SNOMED Code(s): 225051403 Code(s): N18.9 - CHRONIC KIDNEY DISEASE, UNSPECIFIED Status: Acute Current Visit: No Qualifiers: Chronic kidney disease stage: unspecified stage Qualified Code(s): N18.9 - Chronic kidney disease, unspecified - Problem List Review Problem List Initiated/Reviewed/Updated: Yes - My Orders Last 24 Hours: My Active Orders 06/26/20 12:00 Aspirin 325 mg PO DAILY - Plan Plan:: 69-year-old gentleman with a chronic hypoxemic respiratory failure requiring 5 L nasal cannula oxygen. The patient has COPD, chronic lower extremity edema. Presented with worsening shortness of breath over the period of weeks. There is no associated chest pain, fever, cough. He has no pulmonary medicine provider. He also has chronic kidney disease. He was told that he is close to dialysis. Has been taking diuretics but despite that his legs are more swollen lately. Acute on chronic hypoxemic respiratory failure. The patient has been using 5 L nasal cannula oxygen but significantly hypoxemic on that level. Well supplement oxygen as needed - try to taper as possible His home oxygen concentrator only goes up to 5 Will need overnight and walking desaturation studies before discharge Concern for acute COPD exacerbation With chronic prednisone 5 mg use Continue IV Solu-Medrol - taper steroids Use Pulmicort DuoNeb as needed and scheduled CAD Likely acute congestive heart failure exacerbation, per records (2014) diastolic dysfunction Increasing lower extremity edema, elevated BNP echocardiogram for further characterization is not available inpatient, will need cardiology follow-up Continue IV diuretics - diuresing well but edema is still present Continue acetazolamide Continue aspirin, Plavix, losartan Follow electrolytes and renal function Acute pulmonary embolism is less likely CT to evaluate would be risky with the renal failure Pending -lower extremity ultrasound to rule out DVT Chest x-rays questioning possible groundglass opacities, pneumonia Clinically does not appear to have ongoing infection Pending sputum culture, blood culture Well monitor closely in the meantime started ceftriaxone and azithromycin hyperkalemia, hyponatremia Hold potassium supplement Will follow with diuretics Chronic kidney disease stage 3-4 Monitor with diuretics Hypertension Continue Norvasc, losartan DVT prophylaxis with subcutaneous heparin
[2020-06-27] MEDS: cefTRIAXone 1 GM in Sodium Chloride 0.9% 50 ML IV SCH (14:20)
[2020-06-27] MEDS: Docusate Sodium 100 MG Cap PO PRN (14:21)
[2020-06-27] MEDS: Azithromycin 500 MG in Sodium Chloride 0.9% 250 ML IV SCH (15:21)
[2020-06-28] MEDS: Albuterol/Ipratropium 3.0-0.5 MG/3 ML Neb Soln NEB SCH ×4 (01:00→17:52)
[2020-06-28] MEDS: Acetaminophen 325 MG Tab PO PRN ×2 (01:23→20:51)
[2020-06-28] MEDS: Heparin Sodium 5,000 Units/ML Vial SUBCUT SCH ×3 (06:08→21:52)
[2020-06-28] MEDS: Furosemide 40 MG/4 ML VIAL IV SCH ×3 (06:10→21:52)
[2020-06-28 07:06] LABS: ANION GAP 11.1 mEq/L (7-13)
[2020-06-28] MEDS: acetaZOLAMIDE 250 MG Tab PO SCH (08:49)
[2020-06-28] MEDS: Clopidogrel 75 MG Tab PO SCH (08:49)
[2020-06-28] MEDS: Losartan 50 MG Tab PO SCH (08:50)
[2020-06-28] MEDS: Aspirin 325 MG Tab PO SCH (08:51)
[2020-06-28] MEDS: Cyanocobalamin (Vitamin B12) 1,000 MCG Tab PO SCH ×2 (08:51→20:50)
[2020-06-28] MEDS: amLODIPine 5 MG Tab PO SCH (08:51)
[2020-06-28] MEDS: Budesonide 0.5 MG/2 ML Neb Susp NEB SCH ×2 (08:51→17:52)
--- NOTE | 2020-06-28 11:41 | PCM.PN ---
- General Info Date of Service: 06/28/20 Admission Dx/Problem (Free Text): Admission Diagnosis/Problem Admission Diagnosis/Problem COPD, Severe chronic obstructive pulmonary disease Subjective Update: Shortness of breath is still present, moderate, not changed much since yesterday, worse with activity. Oxygen use is still significant 8 l/min No associated chest pain No wheezing noted Lower extremity edema has improved but still present, has good uo Duration of illness is days. No associated fever or chills. - Review of Systems General: Denies: Fever Pulmonary: Reports: Shortness of Breath Cardiovascular: Reports: Edema (still present). Denies: Chest Pain Gastrointestinal: Reports: Constipation. Denies: Abdominal Pain Neurological: Denies: Confusion Psychiatric: Denies: Anxiety - Patient Data Vitals - Most Recent: Last Vital Signs Temp 97.8 F 06/28/20 08:10 Pulse 89 06/28/20 08:10 Resp 20 06/28/20 08:10 BP 135/63 06/28/20 08:51 Pulse Ox 97 06/28/20 08:10 Weight - Most Recent: 195 lb 8 oz I&O - Last 24 Hours: Intake & Output 06/27/20 06/28/20 06/28/20 22:59 06:59 14:59 Intake Total 400 240 Output Total 800 850 Balance -800 -450 240 Lab Results Last 24 Hours: Laboratory Results - last 24 hr 06/28/20 06/28/20 Range/Units 05:50 05:50 WBC 7.4 (5.0-10.0) 10^3/uL RBC 3.40 L (4.6-6.2) 10^6/uL Hgb 10.4 L (14.0-18.0) g/dL Hct 33.8 L (40.0-54.0) % MCV 99.4 (80-100) fL MCH 30.6 (27.0-34.0) pg MCHC 30.8 L (33.0-35.0) g/dL Plt Count 165 (150-450) 10^3/uL Neut % (Auto) 79.4 H (42.2-75.2) % Lymph % (Auto) 6.9 L (20.5-50.1) % [place] % (Auto) 9.4 H (2-8) % Eos % (Auto) 3.5 H (1.0-3.0) % Baso % (Auto) 0.8 (0.0-1.0) % Sodium 137 (136-145) mmol/L Potassium 4.1 (3.5-5.1) mmol/L Chloride 100 (98-107) mmol/L Carbon Dioxide 30 (21-32) mmol/L Anion Gap 11.1 (7-13) mEq/L BUN 51 H (7-18) mg/dL Creatinine 2.68 H (0.70-1.30) mg/dL Est Cr Clr Drug Dosing 22.40 mL/min Estimated GFR (MDRD) 24 Glucose 107 H (74-99) mg/dL Calcium 8.5 (8.5-10.1) mg/dL Phosphorus 4.8 H (2.6-4.7) mg/dL Magnesium 1.9 (1.8-2.4) mg/dL Juan Results Last 24 Hours: Microbiology 06/27/20 15:48 Gram Stain - Final Sputum - Expectorated 06/25/20 12:04 Aerobic Blood Culture - Preliminary Blood - Venous - Lab Draw NO GROWTH AFTER 2 DAYS Anaerobic Blood Culture - Preliminary NO GROWTH AFTER 2 DAYS 06/25/20 12:00 Aerobic Blood Culture - Preliminary Blood - Venous NO GROWTH AFTER 2 DAYS Anaerobic Blood Culture - Preliminary NO GROWTH AFTER 2 DAYS Med Orders - Current: Current Medications Acetaminophen (Tylenol) 650 mg PO Q4H PRN PRN Reason: Pain (Mild 1-3)/fever Last Admin: 06/28/20 01:23 Dose: 650 mg Documented by: Acetazolamide (Diamox) 125 mg PO Q48H [facility] Last Admin: 06/28/20 08:49 Dose: 125 mg Documented by: Albuterol/Ipratropium (Duoneb 3.0-0.5 Mg/3 Ml) 3 ml NEB Q6HRRT [facility] Last Admin: 06/28/20 08:49 Dose: 3 ml Documented by: Albuterol/Ipratropium (Duoneb 3.0-0.5 Mg/3 Ml) 3 ml NEB Q2H PRN PRN Reason: sob Last Admin: 06/25/20 21:25 Dose: 3 ml Documented by: Amlodipine Besylate (Norvasc) 10 mg PO DAILY [facility] Last Admin: 06/28/20 08:51 Dose: 10 mg Documented by: Aspirin (Aspirin) 325 mg PO DAILY [facility] Last Admin: 06/28/20 08:51 Dose: 325 mg Documented by: Budesonide (Pulmicort) 0.5 mg NEB BIDRT [facility] Last Admin: 06/28/20 08:51 Dose: 0.5 mg Documented by: Clopidogrel Bisulfate (Plavix) 75 mg PO DAILY [facility] Last Admin: 06/28/20 08:49 Dose: 75 mg Documented by: Cyanocobalamin (Vitamin B12) 1,000 mcg PO BID [facility] Last Admin: 06/28/20 08:51 Dose: 1,000 mcg Documented by: Docusate Sodium (Colace) 100 mg PO BID PRN PRN Reason: Constipation Last Admin: 06/27/20 14:21 Dose: 100 mg Documented by: Furosemide (Lasix) 40 mg IV Q8HR [facility] Last Admin: 06/28/20 06:10 Dose: 40 mg Documented by: Heparin Sodium (Porcine) (Heparin Sodium) 5,000 units SUBCUT Q8HR [facility] Last Admin: 06/28/20 06:08 Dose: 5,000 units Documented by: Azithromycin 500 mg/ Sodium (Chloride) 250 mls @ 250 mls/hr IV Q24H [facility] Last Infusion: 06/27/20 16:51 Dose: Infused Documented by: Ceftriaxone Sodium 1 gm/ (Sodium Chloride) 50 mls @ 100 mls/hr IV Q24H [facility] Last Infusion: 06/27/20 15:18 Dose: Infused Documented by: Losartan Potassium (Cozaar) 100 mg PO DAILY [facility] Last Admin: 06/28/20 08:50 Dose: 100 mg Documented by: Ondansetron HCl (Zofran Odt) 4 mg PO Q6H PRN PRN Reason: nausea, able to take PO Sodium Chloride (Saline Flush) 10 ml FLUSH ASDIRECTED PRN PRN Reason: Keep Vein Open Last Admin: 06/26/20 13:53 Dose: 10 ml Documented by: Zolpidem Tartrate (Ambien) 5 mg PO BEDTIME PRN PRN Reason: Sleep Discontinued Medications Albuterol/Ipratropium (Duoneb 3.0-0.5 Mg/3 Ml) 3 ml NEB ONETIME ONE Stop: 06/25/20 11:42 Last Admin: 06/25/20 12:11 Dose: 3 ml Documented by: Allopurinol (Zyloprim) 300 mg PO DAILY [facility] Last Admin: 06/26/20 12:09 Dose: Not Given Documented by: Furosemide (Lasix) 40 mg IV Q8H [facility] Last Admin: 06/25/20 17:39 Dose: Not Given Documented by: Methylprednisolone Sodium Succinate (Solu-Medrol) 125 mg IVPUSH ONETIME ONE Stop: 06/25/20 11:25 Last Admin: 06/25/20 12:25 Dose: 125 mg Documented by: Sodium Chloride (Saline Flush) 10 ml FLUSH ASDIRECTED PRN PRN Reason: Keep Vein Open Last Admin: 06/25/20 12:25 Dose: 10 ml Documented by: - Exam Quality Assessment: Supplemental Oxygen (8 l/min) General: Alert, Oriented Neck: Supple Lungs: Normal Respiratory Effort, Decreased Breath Sounds. No: Wheezing GI/Abdominal Exam: Normal Bowel Sounds, Soft, Non-Tender Extremities: No Pedal Edema Skin: Warm, Dry Neurological: No New Focal Deficit Psy/Mental Status: Alert, Normal Affect, Normal Mood Sepsis Event Note - Evaluation Sepsis Screening Result: No Definite Risk - Focused Exam Vital Signs: Vital Signs Temp Pulse Resp BP BP BP Pulse Ox 06/28/20 08:51 135/63 06/28/20 08:50 135/63 06/28/20 08:10 97.8 F 89 20 135/63 97 06/28/20 04:00 98.5 F 88 20 113/72 91 L - Problem List & Annotations (1) Acute congestive heart failure SNOMED Code(s): 80410132 Code(s): I50.9 - HEART FAILURE, UNSPECIFIED Status: Acute Current Visit: Yes (2) HTN (hypertension) SNOMED Code(s): 52758407 Code(s): I10 - ESSENTIAL (PRIMARY) HYPERTENSION Status: Acute Current Visit: Yes (3) CKD (chronic kidney disease) stage 3, GFR 30-59 ml/min SNOMED Code(s): 411911325 Code(s): N18.3 - CHRONIC KIDNEY DISEASE, STAGE 3 (MODERATE) Status: Acute Current Visit: Yes (4) Hyponatremia SNOMED Code(s): 19942276 Code(s): E87.1 - HYPO-OSMOLALITY AND HYPONATREMIA Status: Acute Current Visit: Yes (5) Hyperkalemia SNOMED Code(s): 51088984 Code(s): E87.5 - HYPERKALEMIA Status: Acute Current Visit: Yes (6) CAD (coronary artery disease) SNOMED Code(s): 47512821 Code(s): I25.10 - ATHSCL HEART DISEASE OF [place] CORONARY ARTERY W/O ANG PCTRS Status: Acute Current Visit: Yes (7) Acute exacerbation of chronic obstructive pulmonary disease (COPD) SNOMED Code(s): 217361921 Code(s): J44.1 - CHRONIC OBSTRUCTIVE PULMONARY DISEASE W (ACUTE) EXACERBATION Status: Acute Current Visit: No (8) Acute on chronic respiratory failure SNOMED Code(s): 07522589 Code(s): J96.20 - ACUTE AND CHR RESP FAILURE, UNSP W HYPOXIA OR HYPERCAPNIA Status: Acute Current Visit: No Qualifiers: Respiratory failure complication: hypoxia Qualified Code(s): J96.21 - Acute and chronic respiratory failure with hypoxia (9) CKD (chronic kidney disease) SNOMED Code(s): 688672438 Code(s): N18.9 - CHRONIC KIDNEY DISEASE, UNSPECIFIED Status: Acute Current Visit: No Qualifiers: Chronic kidney disease stage: unspecified stage Qualified Code(s): N18.9 - Chronic kidney disease, unspecified - Problem List Review Problem List Initiated/Reviewed/Updated: Yes - My Orders Last 24 Hours: My Active Orders 06/27/20 15:48 CULTURE SPUTUM + SMEAR [RM] Routine 06/28/20 11:32 Overnight Pulse Oximetry [RC] Click to Edit - Plan Plan:: 69-year-old gentleman with a chronic hypoxemic respiratory failure requiring 5 L nasal cannula oxygen. The patient has COPD, chronic lower extremity edema. Presented with worsening shortness of breath over the period of weeks. There is no associated chest pain, fever, cough. He has no pulmonary medicine provider. He also has chronic kidney disease. He was told that he is close to dialysis. Has been taking diuretics but despite that his legs are more swollen lately. Acute on chronic hypoxemic respiratory failure. The patient has been using 5 L nasal cannula oxygen but was significantly hypoxemic on that level. Well supplement oxygen as needed - try to taper as possible His home oxygen concentrator only goes up to 5 Will have overnight desat study tonight walking desaturation study before discharge Concern for acute COPD exacerbation With chronic prednisone 5 mg use now use higher dose 20 mg Use Pulmicort DuoNeb as needed and scheduled Will need pulmonary follow-up as outpatient CAD Likely acute congestive heart failure exacerbation, per records (2014) diastolic dysfunction Increasing lower extremity edema, elevated BNP echocardiogram for further characterization is not available inpatient, will need cardiology follow-up Continue IV diuretics - diuresing well but edema is still present, renal function is stable Continue acetazolamide Continue aspirin, Plavix, losartan Acute pulmonary embolism is less likely CT to evaluate would be risky with the renal failure Pending -lower extremity ultrasound to rule out DVT Chest x-rays questioning possible groundglass opacities, pneumonia Clinically does not appear to have ongoing infection sputum culture: pending blood cx: neg for now Well monitor closely in the meantime started ceftriaxone and azithromycin hyperkalemia, hyponatremia Resolved Hold potassium supplement follow with diuretics periodically Chronic kidney disease stage 3-4 Monitor with diuretics Hypertension Continue Norvasc, losartan DVT prophylaxis with subcutaneous heparin
[2020-06-28] MEDS: predniSONE 20 MG Tab PO SCH (13:41)
[2020-06-28] MEDS: cefTRIAXone 1 GM in Sodium Chloride 0.9% 50 ML IV SCH (15:43)
[2020-06-28] MEDS: Azithromycin 500 MG in Sodium Chloride 0.9% 250 ML IV SCH (16:16)
[2020-06-28] MEDS: Docusate Sodium 100 MG Cap PO PRN (20:51)
[2020-06-29] MEDS: Albuterol/Ipratropium 3.0-0.5 MG/3 ML Neb Soln NEB SCH ×4 (03:50→18:14)
[2020-06-29] MEDS: Furosemide 40 MG/4 ML VIAL IV SCH ×3 (05:47→22:40)
[2020-06-29] MEDS: Heparin Sodium 5,000 Units/ML Vial SUBCUT SCH ×3 (05:54→22:48)
[2020-06-29] MEDS: Budesonide 0.5 MG/2 ML Neb Susp NEB SCH ×2 (07:38→18:14)
[2020-06-29] MEDS: predniSONE 20 MG Tab PO SCH (09:28)
[2020-06-29] MEDS: amLODIPine 5 MG Tab PO SCH (09:28)
[2020-06-29] MEDS: Aspirin 325 MG Tab PO SCH (09:28)
[2020-06-29] MEDS: Losartan 50 MG Tab PO SCH (09:28)
[2020-06-29] MEDS: Cyanocobalamin (Vitamin B12) 1,000 MCG Tab PO SCH ×2 (09:28→22:35)
[2020-06-29] MEDS: Clopidogrel 75 MG Tab PO SCH (09:28)
--- NOTE | 2020-06-29 11:25 | US ---
PROCEDURE INFORMATION: Exam: US Duplex Lower Extremity Veins, Bilateral Exam date and time: 06/29/2020 10:10 AM Age: 69 years old Clinical indication: Other: Bilat edema, SOB TECHNIQUE: Imaging protocol: Real-time duplex ultrasound of the extremities with 2-D lopez scale, color Doppler flow and spectral waveform analysis with image documentation. Complete exam focused on the bilateral lower extremity veins. COMPARISON: No relevant prior studies available. FINDINGS: Right deep veins: Unremarkable. The common femoral, femoral, proximal profunda femoral and popliteal veins are patent without thrombus. Normal Doppler waveforms. Normal compressibility and/or augmentation response. Right superficial veins: Saphenofemoral junction is patent without thrombus. Left deep veins: Unremarkable. The common femoral, femoral, proximal profunda femoral and popliteal veins are patent without thrombus. Normal Doppler waveforms. Normal compressibility and/or augmentation response. Left superficial veins: Saphenofemoral junction is patent without thrombus. Soft tissues: Simple left popliteal fluid collection 3.6 x 3.3 x 1.4 cm. IMPRESSION: 1. Negative for lower extremity venous thrombosis. 2. Left Mayorga's cyst 3.6 x 3.3 x 1.4 cm.
--- NOTE | 2020-06-29 13:22 | PCM.DCSUM1 ---
Discharge Summary - Hospital Course Free Text/Narrative:: 69-year-old gentleman with a chronic hypoxemic respiratory failure requiring 5 L nasal cannula oxygen. The patient has COPD, chronic lower extremity edema. Presented with worsening shortness of breath over the period of weeks. There was no associated chest pain, fever, cough. He has no pulmonary medicine provider. He also has chronic kidney disease. He was told that he is close to dialysis. Has been taking diuretics but despite that his legs are more swollen lately. hospital course: Acute on chronic hypoxemic respiratory failure. The patient has been using 5 L nasal cannula oxygen but was significantly hypoxemic on that level. during deat studies he needed 7 l/min via nc when resting and at night he needed 10 l/min via nc with activity need is lifelong he is mobile, leaving the house Concern for acute COPD exacerbation With chronic prednisone 5 mg use treated with sterids, Pulmicort, DuoNeb as needed and scheduled referred to pulmonary clinic for follow-up as outpatient CAD, with acute congestive heart failure exacerbation, per records (2014) diastolic dysfunction Increasing lower extremity edema, elevated BNP on presentation echocardiogram for further characterization is not available inpatient, will need cardiology follow-up - set up clinic treated with IV diuretics - diuresing well but edema is still present, renal function is stable Continue acetazolamide Continue aspirin, Plavix, losartan increase PO lasix after discharge Acute pulmonary embolism is less likely CT to evaluate would be risky with the renal failure Lower extremity ultrasound negative for DVT Chest x-rays questioning possible groundglass opacities, pneumonia Clinically does not appear to have ongoing infection sputum culture: neg blood cx: neg for now treated with ceftriaxone and azithromycin - discharge with vantin hyperkalemia, hyponatremia Resolved increased diuretics will decrease potassium supplement follow with diuretics periodically Chronic kidney disease stage 3-4 Monitor with diuretics Hypertension Continue Norvasc, losartan Diagnosis: Stroke: No - Discharge Data Discharge Date: 06/29/20 Discharge Disposition: Home, Self-Care 01 Condition: Good - Referral to Home Health Primary Care Physician: Yasmani Jones MD - Discharge Diagnosis/Problem(s) (1) Acute congestive heart failure SNOMED Code(s): 13574378 ICD Code: I50.9 - HEART FAILURE, UNSPECIFIED Status: Acute Current Visit: Yes (2) HTN (hypertension) SNOMED Code(s): 07694074 ICD Code: I10 - ESSENTIAL (PRIMARY) HYPERTENSION Status: Acute Current Visit: Yes (3) CKD (chronic kidney disease) stage 3, GFR 30-59 ml/min SNOMED Code(s): 956955166 ICD Code: N18.3 - CHRONIC KIDNEY DISEASE, STAGE 3 (MODERATE) Status: Acute Current Visit: Yes (4) Hyponatremia SNOMED Code(s): 12375326 ICD Code: E87.1 - HYPO-OSMOLALITY AND HYPONATREMIA Status: Acute Current Visit: Yes (5) Hyperkalemia SNOMED Code(s): 34718470 ICD Code: E87.5 - HYPERKALEMIA Status: Acute Current Visit: Yes (6) CAD (coronary artery disease) SNOMED Code(s): 30728564 ICD Code: I25.10 - ATHSCL HEART DISEASE OF [place] CORONARY ARTERY W/O ANG PCTRS Status: Acute Current Visit: Yes (7) Acute exacerbation of chronic obstructive pulmonary disease (COPD) SNOMED Code(s): 972171236 ICD Code: J44.1 - CHRONIC OBSTRUCTIVE PULMONARY DISEASE W (ACUTE) EXACERBATION Status: Acute Current Visit: No (8) Acute on chronic respiratory failure SNOMED Code(s): 89001727 ICD Code: J96.20 - ACUTE AND CHR RESP FAILURE, UNSP W HYPOXIA OR HYPERCAPNIA Status: Acute Current Visit: No Qualifiers: Respiratory failure complication: hypoxia Qualified Code(s): J96.21 - Acute and chronic respiratory failure with hypoxia (9) CKD (chronic kidney disease) SNOMED Code(s): 827487520 ICD Code: N18.9 - CHRONIC KIDNEY DISEASE, UNSPECIFIED Status: Acute Current Visit: No Qualifiers: Chronic kidney disease stage: unspecified stage Qualified Code(s): N18.9 - Chronic kidney disease, unspecified - Discharge Plan *PRESCRIPTION DRUG MONITORING PROGRAM REVIEWED*: Not Applicable *COPY OF PRESCRIPTION DRUG MONITORING REPORT IN PATIENT JU: Not Applicable Prescriptions/Med Rec: Aspirin 325 mg PO DAILY #30 tablet Cefpodoxime [Vantin] 200 mg PO DAILY #5 tablet Home Medications: Home Meds Albuterol Sulfate [Albuterol Sulfate Hfa] 2 puff IH TID PRN 06/25/20 [History] Clopidogrel Bisulfate [Clopidogrel] 75 mg PO DAILY 06/25/20 [History] Cyanocobalamin (Vitamin B-12) [B-12] 1,000 mcg PO DAILY 06/25/20 [History] Iron Polysaccharide Complex [Iferex 150] 150 mg PO BID 06/25/20 [History] Losartan Potassium 100 mg PO DAILY 06/25/20 [History] Magnesium Oxide [Magnesium] 400 mg PO BID 06/25/20 [History] Mometasone/Formoterol [Dulera 200 Mcg-5 Mcg Inhaler] 1 puff IH BID 06/25/20 [History] Mupirocin Oint [Bactroban Oint] 1 applic EARLF DAILY 06/25/20 [History] acetaZOLAMIDE [Acetazolamide] 125 mg PO .48HOURS 06/25/20 [History] amLODIPine Besylate [Amlodipine Besylate] 10 mg PO DAILY 06/25/20 [History] predniSONE [Prednisone] 5 mg PO DAILY 06/25/20 [History] Aspirin 325 mg PO DAILY #30 tablet 06/29/20 [Rx] Cefpodoxime [Vantin] 200 mg PO DAILY #5 tablet 06/29/20 [Rx] Furosemide 60 mg PO BID #30 06/29/20 [Rx] Potassium Chloride [Klor-Con 10] 20 meq PO DAILY #0 06/29/20 [Rx] Oxygen Therapy Mode: Nasal Cannula Patient Handouts: Chronic Obstructive Pulmonary Disease Exacerbation, [id number], Chronic Obstructive Pulmonary Disease, [id number], Cefpodoxime tablets, Home Oxygen Use, Adult, Aspirin, ASA oral tablets Referrals: Yasmani Jones MD [Primary Care Provider] - - Discharge Summary/Plan Comment DC Time >30 min.: Yes (d/w rt, arranging home oxygen new supplies) - General Info Date of Service: 06/29/20 Subjective Update: Shortness of breath is still present, moderate, not changed much since yesterday, worse with activity. Oxygen use is still significant 7 l/min No associated chest pain No wheezing noted Lower extremity edema has improved but still present, has good uo Duration of illness is days. No associated fever or chills. Functional Status: Reports: Pain Controlled, Tolerating Diet, Ambulating - Review of Systems General: Reports: Weakness. Denies: Fever Pulmonary: Reports: Shortness of Breath Cardiovascular: Reports: Edema. Denies: Chest Pain Neurological: Denies: Confusion - Patient Data Vitals - Most Recent: Last Vital Signs Temp 98.3 F 06/29/20 08:08 Pulse 80 06/29/20 08:08 Resp 20 06/29/20 08:08 BP 116/99 H 06/29/20 09:28 Pulse Ox 97 06/29/20 08:08 Weight - Most Recent: 195 lb 9.6 oz I&O - Last 24 hours: Intake & Output 06/28/20 06/29/20 06/29/20 22:59 06:59 14:59 Intake Total 980 360 Balance 980 360 LEEANN Results - Last 24 hrs: Microbiology 06/25/20 12:04 Aerobic Blood Culture - Preliminary Blood - Venous - Lab Draw NO GROWTH AFTER 4 DAYS Anaerobic Blood Culture - Preliminary NO GROWTH AFTER 4 DAYS 06/25/20 12:00 Aerobic Blood Culture - Preliminary Blood - Venous NO GROWTH AFTER 4 DAYS Anaerobic Blood Culture - Preliminary NO GROWTH AFTER 4 DAYS 06/27/20 15:48 Gram Stain - Final Sputum - Expectorated Sputum Culture - Preliminary Med Orders - Current: Current Medications Acetaminophen (Tylenol) 650 mg PO Q4H PRN PRN Reason: Pain (Mild 1-3)/fever Last Admin: 06/28/20 20:51 Dose: 650 mg Documented by: Acetazolamide (Diamox) 125 mg PO Q48H [facility] Last Admin: 06/28/20 08:49 Dose: 125 mg Documented by: Albuterol/Ipratropium (Duoneb 3.0-0.5 Mg/3 Ml) 3 ml NEB Q6HRRT [facility] Last Admin: 06/29/20 07:38 Dose: 3 ml Documented by: Albuterol/Ipratropium (Duoneb 3.0-0.5 Mg/3 Ml) 3 ml NEB Q2H PRN PRN Reason: sob Last Admin: 06/25/20 21:25 Dose: 3 ml Documented by: Amlodipine Besylate (Norvasc) 10 mg PO DAILY [facility] Last Admin: 06/29/20 09:28 Dose: 10 mg Documented by: Aspirin (Aspirin) 325 mg PO DAILY [facility] Last Admin: 06/29/20 09:28 Dose: 325 mg Documented by: Budesonide (Pulmicort) 0.5 mg NEB BIDRT [facility] Last Admin: 06/29/20 07:38 Dose: 0.5 mg Documented by: Clopidogrel Bisulfate (Plavix) 75 mg PO DAILY [facility] Last Admin: 06/29/20 09:28 Dose: 75 mg Documented by: Cyanocobalamin (Vitamin B12) 1,000 mcg PO BID [facility] Last Admin: 06/29/20 09:28 Dose: 1,000 mcg Documented by: Docusate Sodium (Colace) 100 mg PO BID PRN PRN Reason: Constipation Last Admin: 06/28/20 20:51 Dose: 100 mg Documented by: Furosemide (Lasix) 40 mg IV Q8HR [facility] Last Admin: 06/29/20 05:47 Dose: 40 mg Documented by: Heparin Sodium (Porcine) (Heparin Sodium) 5,000 units SUBCUT Q8HR [facility] Last Admin: 06/29/20 05:54 Dose: 5,000 units Documented by: Azithromycin 500 mg/ Sodium (Chloride) 250 mls @ 250 mls/hr IV Q24H [facility] Last Infusion: 06/28/20 17:21 Dose: Infused Documented by: Ceftriaxone Sodium 1 gm/ (Sodium Chloride) 50 mls @ 100 mls/hr IV Q24H [facility] Last Admin: 06/28/20 15:43 Dose: 100 mls/hr Documented by: Losartan Potassium (Cozaar) 100 mg PO DAILY [facility] Last Admin: 06/29/20 09:28 Dose: 100 mg Documented by: Ondansetron HCl (Zofran Odt) 4 mg PO Q6H PRN PRN Reason: nausea, able to take PO Prednisone (Prednisone) 20 mg PO WITHBREAKFAST [facility] Last Admin: 06/29/20 09:28 Dose: 20 mg Documented by: Sodium Chloride (Saline Flush) 10 ml FLUSH ASDIRECTED PRN PRN Reason: Keep Vein Open Last Admin: 06/26/20 13:53 Dose: 10 ml Documented by: Zolpidem Tartrate (Ambien) 5 mg PO BEDTIME PRN PRN Reason: Sleep Discontinued Medications Albuterol/Ipratropium (Duoneb 3.0-0.5 Mg/3 Ml) 3 ml NEB ONETIME ONE Stop: 06/25/20 11:42 Last Admin: 06/25/20 12:11 Dose: 3 ml Documented by: Allopurinol (Zyloprim) 300 mg PO DAILY [facility] Last Admin: 06/26/20 12:09 Dose: Not Given Documented by: Furosemide (Lasix) 40 mg IV Q8H [facility] Last Admin: 06/25/20 17:39 Dose: Not Given Documented by: Methylprednisolone Sodium Succinate (Solu-Medrol) 125 mg IVPUSH ONETIME ONE Stop: 06/25/20 11:25 Last Admin: 06/25/20 12:25 Dose: 125 mg Documented by: Sodium Chloride (Saline Flush) 10 ml FLUSH ASDIRECTED PRN PRN Reason: Keep Vein Open Last Admin: 06/25/20 12:25 Dose: 10 ml Documented by: - Exam Quality Assessment: Reports: Supplemental Oxygen General: Reports: Alert, Oriented Neck: Reports: Supple Lungs: Reports: Normal Respiratory Effort, Decreased Breath Sounds Cardiovascular: Reports: Regular Rate, Regular Rhythm GI/Abdominal Exam: Normal Bowel Sounds, Soft, Non-Tender Extremities: No Pedal Edema Skin: Reports: Warm, Dry Neurological: Reports: No New Focal Deficit Psy/Mental Status: Reports: Alert, Normal Affect, Normal Mood
--- NOTE | 2020-06-29 13:27 | PCM.PN ---
- General Info Date of Service: 06/29/20 Admission Dx/Problem (Free Text): Admission Diagnosis/Problem Admission Diagnosis/Problem COPD, Severe chronic obstructive pulmonary disease Subjective Update: Shortness of breath is still present, moderate, not changed much since yesterday, worse with activity. Oxygen use is still significant 7 l/min No associated chest pain No wheezing noted Lower extremity edema has improved but still present, has good uo Duration of illness is days. No associated fever or chills. Functional Status: Reports: Pain Controlled, Tolerating Diet - Review of Systems General: Denies: Fever Pulmonary: Reports: Shortness of Breath Cardiovascular: Reports: Edema. Denies: Chest Pain Neurological: Denies: Confusion - Patient Data Vitals - Most Recent: Last Vital Signs Temp 98.3 F 06/29/20 08:08 Pulse 80 06/29/20 08:08 Resp 20 06/29/20 08:08 BP 116/99 H 06/29/20 09:28 Pulse Ox 97 06/29/20 08:08 Weight - Most Recent: 195 lb 9.6 oz I&O - Last 24 Hours: Intake & Output 06/28/20 06/29/20 06/29/20 22:59 06:59 14:59 Intake Total 980 360 Balance 980 360 Juan Results Last 24 Hours: Microbiology 06/25/20 12:04 Aerobic Blood Culture - Preliminary Blood - Venous - Lab Draw NO GROWTH AFTER 4 DAYS Anaerobic Blood Culture - Preliminary NO GROWTH AFTER 4 DAYS 06/25/20 12:00 Aerobic Blood Culture - Preliminary Blood - Venous NO GROWTH AFTER 4 DAYS Anaerobic Blood Culture - Preliminary NO GROWTH AFTER 4 DAYS 06/27/20 15:48 Gram Stain - Final Sputum - Expectorated Sputum Culture - Preliminary Med Orders - Current: Current Medications Acetaminophen (Tylenol) 650 mg PO Q4H PRN PRN Reason: Pain (Mild 1-3)/fever Last Admin: 06/28/20 20:51 Dose: 650 mg Documented by: Acetazolamide (Diamox) 125 mg PO Q48H [facility] Last Admin: 06/28/20 08:49 Dose: 125 mg Documented by: Albuterol/Ipratropium (Duoneb 3.0-0.5 Mg/3 Ml) 3 ml NEB Q6HRRT [facility] Last Admin: 06/29/20 07:38 Dose: 3 ml Documented by: Albuterol/Ipratropium (Duoneb 3.0-0.5 Mg/3 Ml) 3 ml NEB Q2H PRN PRN Reason: sob Last Admin: 06/25/20 21:25 Dose: 3 ml Documented by: Amlodipine Besylate (Norvasc) 10 mg PO DAILY [facility] Last Admin: 06/29/20 09:28 Dose: 10 mg Documented by: Aspirin (Aspirin) 325 mg PO DAILY [facility] Last Admin: 06/29/20 09:28 Dose: 325 mg Documented by: Budesonide (Pulmicort) 0.5 mg NEB BIDRT [facility] Last Admin: 06/29/20 07:38 Dose: 0.5 mg Documented by: Clopidogrel Bisulfate (Plavix) 75 mg PO DAILY [facility] Last Admin: 06/29/20 09:28 Dose: 75 mg Documented by: Cyanocobalamin (Vitamin B12) 1,000 mcg PO BID [facility] Last Admin: 06/29/20 09:28 Dose: 1,000 mcg Documented by: Docusate Sodium (Colace) 100 mg PO BID PRN PRN Reason: Constipation Last Admin: 06/28/20 20:51 Dose: 100 mg Documented by: Furosemide (Lasix) 40 mg IV Q8HR [facility] Last Admin: 06/29/20 05:47 Dose: 40 mg Documented by: Heparin Sodium (Porcine) (Heparin Sodium) 5,000 units SUBCUT Q8HR [facility] Last Admin: 06/29/20 05:54 Dose: 5,000 units Documented by: Azithromycin 500 mg/ Sodium (Chloride) 250 mls @ 250 mls/hr IV Q24H [facility] Last Infusion: 06/28/20 17:21 Dose: Infused Documented by: Ceftriaxone Sodium 1 gm/ (Sodium Chloride) 50 mls @ 100 mls/hr IV Q24H [facility] Last Admin: 06/28/20 15:43 Dose: 100 mls/hr Documented by: Losartan Potassium (Cozaar) 100 mg PO DAILY [facility] Last Admin: 06/29/20 09:28 Dose: 100 mg Documented by: Ondansetron HCl (Zofran Odt) 4 mg PO Q6H PRN PRN Reason: nausea, able to take PO Prednisone (Prednisone) 20 mg PO WITHBREAKFAST [facility] Last Admin: 06/29/20 09:28 Dose: 20 mg Documented by: Sodium Chloride (Saline Flush) 10 ml FLUSH ASDIRECTED PRN PRN Reason: Keep Vein Open Last Admin: 06/26/20 13:53 Dose: 10 ml Documented by: Zolpidem Tartrate (Ambien) 5 mg PO BEDTIME PRN PRN Reason: Sleep Discontinued Medications Albuterol/Ipratropium (Duoneb 3.0-0.5 Mg/3 Ml) 3 ml NEB ONETIME ONE Stop: 06/25/20 11:42 Last Admin: 06/25/20 12:11 Dose: 3 ml Documented by: Allopurinol (Zyloprim) 300 mg PO DAILY [facility] Last Admin: 06/26/20 12:09 Dose: Not Given Documented by: Furosemide (Lasix) 40 mg IV Q8H [facility] Last Admin: 06/25/20 17:39 Dose: Not Given Documented by: Methylprednisolone Sodium Succinate (Solu-Medrol) 125 mg IVPUSH ONETIME ONE Stop: 06/25/20 11:25 Last Admin: 06/25/20 12:25 Dose: 125 mg Documented by: Sodium Chloride (Saline Flush) 10 ml FLUSH ASDIRECTED PRN PRN Reason: Keep Vein Open Last Admin: 06/25/20 12:25 Dose: 10 ml Documented by: - Exam Quality Assessment: Supplemental Oxygen General: Alert, Oriented Neck: Supple Lungs: Normal Respiratory Effort, Decreased Breath Sounds. No: Wheezing Cardiovascular: Regular Rate, Regular Rhythm GI/Abdominal Exam: Normal Bowel Sounds, Soft, Non-Tender Extremities: Pedal Edema Sepsis Event Note - Evaluation Sepsis Screening Result: No Definite Risk - Focused Exam Vital Signs: Vital Signs Temp Pulse Pulse Resp BP BP BP 06/29/20 09:28 116/99 H 06/29/20 08:08 98.3 F 80 20 116/99 H 06/29/20 07:40 85 06/29/20 07:00 06/29/20 06:00 06/29/20 05:00 06/29/20 04:00 98.2 F 84 20 134/64 06/29/20 03:00 06/29/20 02:00 Pulse Ox Pulse Ox 06/29/20 09:28 06/29/20 08:08 97 06/29/20 07:40 97 06/29/20 07:00 97 06/29/20 06:00 95 06/29/20 05:00 96 06/29/20 04:00 84 L 06/29/20 03:00 94 L 06/29/20 02:00 98 - Problem List & Annotations (1) Acute congestive heart failure SNOMED Code(s): 03048769 Code(s): I50.9 - HEART FAILURE, UNSPECIFIED Status: Acute Current Visit: Yes (2) HTN (hypertension) SNOMED Code(s): 18849825 Code(s): I10 - ESSENTIAL (PRIMARY) HYPERTENSION Status: Acute Current Visit: Yes (3) CKD (chronic kidney disease) stage 3, GFR 30-59 ml/min SNOMED Code(s): 180998630 Code(s): N18.3 - CHRONIC KIDNEY DISEASE, STAGE 3 (MODERATE) Status: Acute Current Visit: Yes (4) Hyponatremia SNOMED Code(s): 37528130 Code(s): E87.1 - HYPO-OSMOLALITY AND HYPONATREMIA Status: Acute Current Visit: Yes (5) Hyperkalemia SNOMED Code(s): 65843615 Code(s): E87.5 - HYPERKALEMIA Status: Acute Current Visit: Yes (6) CAD (coronary artery disease) SNOMED Code(s): 31032777 Code(s): I25.10 - ATHSCL HEART DISEASE OF [place] CORONARY ARTERY W/O ANG PCTRS Status: Acute Current Visit: Yes (7) Acute exacerbation of chronic obstructive pulmonary disease (COPD) SNOMED Code(s): 493806581 Code(s): J44.1 - CHRONIC OBSTRUCTIVE PULMONARY DISEASE W (ACUTE) EXACERBATION Status: Acute Current Visit: No (8) Acute on chronic respiratory failure SNOMED Code(s): 38919113 Code(s): J96.20 - ACUTE AND CHR RESP FAILURE, UNSP W HYPOXIA OR HYPERCAPNIA Status: Acute Current Visit: No Qualifiers: Respiratory failure complication: hypoxia Qualified Code(s): J96.21 - Acute and chronic respiratory failure with hypoxia (9) CKD (chronic kidney disease) SNOMED Code(s): 548527610 Code(s): N18.9 - CHRONIC KIDNEY DISEASE, UNSPECIFIED Status: Acute Current Visit: No Qualifiers: Chronic kidney disease stage: unspecified stage Qualified Code(s): N18.9 - Chronic kidney disease, unspecified - Problem List Review Problem List Initiated/Reviewed/Updated: Yes - My Orders Last 24 Hours: My Active Orders 06/29/20 10:45 6 Minute Walk Test [RT Physical Performance Test] [RESPCARE] Routine 06/29/20 13:16 Ready for Discharge [RC] PER UNIT ROUTINE - Plan Plan:: 69-year-old gentleman with a chronic hypoxemic respiratory failure requiring 5 L nasal cannula oxygen. The patient has COPD, chronic lower extremity edema. Presented with worsening shortness of breath over the period of weeks. There is no associated chest pain, fever, cough. He has no pulmonary medicine provider. He also has chronic kidney disease. He was told that he is close to dialysis. Has been taking diuretics but despite that his legs are more swollen lately. Acute on chronic hypoxemic respiratory failure. The patient has been using 5 L nasal cannula oxygen but was significantly hypoxemic on that level. Well supplement oxygen as needed - try to taper as possible His home oxygen concentrator only goes up to 5 overnight desat study: required 7 l/min walking desaturation study: required 10 l/min Concern for acute COPD exacerbation With chronic prednisone 5 mg use now use higher dose 20 mg Use Pulmicort DuoNeb as needed and scheduled Will need pulmonary follow-up as outpatient CAD Likely acute congestive heart failure exacerbation, per records (2014) diastolic dysfunction Increasing lower extremity edema, elevated BNP echocardiogram for further characterization is not available inpatient, will need cardiology follow-up Continue IV diuretics - diuresing well but edema is still present, renal function is stable Continue acetazolamide Continue aspirin, Plavix, losartan Acute pulmonary embolism is less likely CT to evaluate would be risky with the renal failure Pending -lower extremity ultrasound to rule out DVT Chest x-rays questioning possible groundglass opacities, pneumonia Clinically does not appear to have ongoing infection sputum culture: pending blood cx: neg for now Well monitor closely in the meantime started ceftriaxone and azithromycin hyperkalemia, hyponatremia Resolved Hold potassium supplement follow with diuretics periodically Chronic kidney disease stage 3-4 Monitor with diuretics Hypertension Continue Norvasc, losartan DVT prophylaxis with subcutaneous heparin
[2020-06-29] MEDS: cefTRIAXone 1 GM in Sodium Chloride 0.9% 50 ML IV SCH (15:20)
[2020-06-29] MEDS: Azithromycin 500 MG in Sodium Chloride 0.9% 250 ML IV SCH (16:37)
[2020-06-29] MEDS: Acetaminophen 325 MG Tab PO PRN (22:32)
[2020-06-29] MEDS: Docusate Sodium 100 MG Cap PO PRN (22:34)
[2020-06-29] MEDS: Sodium Chloride 0.9% 10 ML Syringe FLUSH PRN ×2 (22:40→22:47)
[2020-06-30] MEDS: Albuterol/Ipratropium 3.0-0.5 MG/3 ML Neb Soln NEB SCH ×2 (01:36→07:40)
[2020-06-30] MEDS: Sodium Chloride 0.9% 10 ML Syringe FLUSH PRN ×2 (06:13→06:18)
[2020-06-30] MEDS: Furosemide 40 MG/4 ML VIAL IV SCH (06:13)
[2020-06-30] MEDS: Heparin Sodium 5,000 Units/ML Vial SUBCUT SCH (06:19)
[2020-06-30] MEDS: Budesonide 0.5 MG/2 ML Neb Susp NEB SCH (07:40)
[2020-06-30] MEDS: amLODIPine 5 MG Tab PO SCH (08:40)
[2020-06-30] MEDS: Losartan 50 MG Tab PO SCH (08:41)
[2020-06-30] MEDS: Clopidogrel 75 MG Tab PO SCH (08:41)
[2020-06-30] MEDS: Cyanocobalamin (Vitamin B12) 1,000 MCG Tab PO SCH (08:41)
[2020-06-30] MEDS: predniSONE 20 MG Tab PO SCH (08:41)
[2020-06-30] MEDS: Aspirin 325 MG Tab PO SCH (08:41)
[2020-06-30] MEDS: acetaZOLAMIDE 250 MG Tab PO SCH (08:41)
== END 2020-06-30 12:59 | disposition home or self-care (01) | DRG 291 ==
LOC: DL.ED 11:22 → DL.MS 13:02
PROVIDERS: ADMIT Internal Medicine; ATTEND Hospitalist
DX: I13.0 Hypertensive heart and chronic kidney disease with heart failure and stage 1 through stage 4 chronic kidney disease, or unspecified chronic kidney disease (principal); I50.33 Acute on chronic diastolic (congestive) heart failure; J96.21 Acute and chronic respiratory failure with hypoxia; J44.1 Chronic obstructive pulmonary disease with (acute) exacerbation; N18.9 Chronic kidney disease, unspecified; I50.9 Heart failure, unspecified; E87.1 Hypo-osmolality and hyponatremia; N18.4 Chronic kidney disease, stage 4 (severe); Z87.891 Personal history of nicotine dependence; E87.5 Hyperkalemia; Z20.828 Contact with and (suspected) exposure to other viral communicable diseases; I25.10 Atherosclerotic heart disease of native coronary artery without angina pectoris; K76.0 Fatty (change of) liver, not elsewhere classified; E66.9 Obesity, unspecified; Z79.52 Long term (current) use of systemic steroids; Z99.81 Dependence on supplemental oxygen; Z79.82 Long term (current) use of aspirin; Z79.02 Long term (current) use of antithrombotics/antiplatelets; Z79.899 Other long term (current) drug therapy; Z68.33 Body mass index [BMI] 33.0-33.9, adult
CPT/HCPCS: 36415; 71045; 80048; 80053; 83605; 83735; 83880; 84100; 84484; 85025; 85379; 87040; 87070; 87205; 93005; 93970; 94618; 94640; A9270-GY; J0456; J0696; J1644; J1940; J2930; J7050; J7512; J7620-GY; U0002

== ENCOUNTER 2020-10-21 11:40 | Emergency (ER) | payer MEDICARE, SELFPAY ==
--- NOTE | 2020-10-21 11:43 | EDM.PDOC ---
ED HPI GENERAL MEDICAL PROBLEM - General Chief Complaint: Respiratory Problem Stated Complaint: AMBULANCE Time Seen by Provider: 10/21/20 11:42 Source of Information: Reports: Patient, EMS, Old Records, RN, RN Notes Reviewed History Limitations: Reports: No Limitations - History of Present Illness INITIAL COMMENTS - FREE TEXT/NARRATIVE: Pt arrives from home by [facility] ambulance service with c/o progressively worsening shortness of breath for the past two weeks. Pt reports increased edema and weight, orthopnea, and cough. He has Hx of COPD with chronic respiratory failure, and is dependent on supplemental home oxygen (unsure of how many liter/min). He denies fever, chills, chest pain, N/V, abdominal pain, or any known COVID exposure. Onset: Gradual Duration: Week(s): (2), Constant, Getting Worse Location: Reports: Chest Quality: Reports: Ache (Generalized body aches) Severity: Severe Improves with: Reports: None Worsens with: Reports: Other (Activity) Associated Symptoms: Reports: No Other Symptoms Treatments END MATCHER: Reports: Breathing Treatments, Other Medication(s), Oxygen - Related Data Allergies Allergy/AdvReac Type Severity Reaction Status Date / Time No Known Allergies Allergy Verified 06/25/20 13:31 Home Meds: Home Meds Albuterol Sulfate [Albuterol Sulfate Hfa] 2 puff IH TID PRN 06/25/20 [History] Clopidogrel Bisulfate [Clopidogrel] 75 mg PO DAILY 06/25/20 [History] Cyanocobalamin (Vitamin B-12) [B-12] 1,000 mcg PO DAILY 06/25/20 [History] Iron Polysaccharide Complex [Iferex 150] 150 mg PO BID 06/25/20 [History] Losartan Potassium 100 mg PO DAILY 06/25/20 [History] Magnesium Oxide [Magnesium] 400 mg PO BID 06/25/20 [History] Mometasone/Formoterol [Dulera 200 Mcg-5 Mcg Inhaler] 1 puff IH BID 06/25/20 [History] Mupirocin Oint [Bactroban Oint] 1 applic EARLF DAILY 06/25/20 [History] acetaZOLAMIDE [Acetazolamide] 125 mg PO .48HOURS 06/25/20 [History] amLODIPine Besylate [Amlodipine Besylate] 10 mg PO DAILY 06/25/20 [History] predniSONE [Prednisone] 5 mg PO DAILY 06/25/20 [History] Aspirin 325 mg PO DAILY #30 tablet 06/29/20 [Rx] Cefpodoxime [Vantin] 200 mg PO DAILY #5 tablet 06/29/20 [Rx] Furosemide 60 mg PO BID #30 06/29/20 [Rx] Potassium Chloride [Klor-Con 10] 20 meq PO DAILY #0 06/29/20 [Rx] Past Medical History Cardiovascular History: Reports: CAD, Heart Failure, Hypertension Respiratory History: Reports: Asthma, COPD, SOB Gastrointestinal History: Reports: Fatty Liver Genitourinary History: Reports: Chronic Renal Insuffiency, Renal Disease Endocrine/Metabolic History: Reports: Obesity/BMI 30+ - Past Surgical History GI Surgical History: Reports: Appendectomy Social & Family History - Family History Family Medical History: No Pertinent Family History - Tobacco Use Tobacco Use Status *Q: Former Tobacco User - Caffeine Use Caffeine Use: Reports: Coffee - Living Situation & Occupation Occupation: Retired ED ROS GENERAL - Review of Systems Review Of Systems: Comprehensive ROS is negative, except as noted in HPI. ED EXAM, GENERAL - Physical Exam Exam: See Below Exam Limited By: No Limitations General Appearance: Alert, Anxious, Mild Distress, Obese Eye Exam: Bilateral Eye: Normal Inspection Nose: Normal Inspection, Normal Mucosa, No Blood Throat/Mouth: Normal Lips, Normal Voice, No Airway Compromise Head: Atraumatic, Normocephalic Neck: Normal Inspection, Non-Tender, Full Range of Motion Respiratory/Chest: Chest Non-Tender, Decreased Breath Sounds, Crackles, Rales, Accessory Muscle Use. No: Rhonchi, Stridor Cardiovascular: Regular Rate, Rhythm, Other (+2 pitting to thighs B/L) GI/Abdominal: Normal Bowel Sounds, Non-Tender, Other (Protruberant obese abdomen). No: Guarding, Rigid, Rebound Back Exam: Normal Inspection Extremities: Pedal Edema, Other (Chronic B/L lower extremity venous stasis changes.) Neurological: Alert, Oriented, CN II-XII Intact, Normal Cognition, No Motor/Sensory Deficits Psychiatric: Anxious Skin Exam: Warm, Dry #1 Interpretation EKG Date: 10/21/20 Time: 12:13 Rhythm: Other (SR) Rate (Beats/Min): 83 [place]: Normal P-Wave: Present QRS: Wide (Nonspecific IVCD) ST-T: Normal QT: Normal Comparison: NA - No Prior EKG Course - Vital Signs Last Recorded V/S: Last Vital Signs Temp 97.8 F 10/21/20 11:40 Pulse 86 10/21/20 11:47 Resp 28 H 10/21/20 11:40 BP 131/71 10/21/20 11:40 Pulse Ox 95 10/21/20 11:47 - Orders/Labs/Meds Orders: Active Orders 24 hr Category Date Time Status EKG 12 Lead [EKG Documentation Completion] [RC] STAT Care 10/21/20 11:49 Active Peripheral IV Care [RC] . DIRECTED Care 10/21/20 11:50 Active RT Aerosol Therapy [RC] ASDIRECTED Care 10/21/20 11:47 Active CULTURE BLOOD [BC] Stat Lab 10/21/20 11:59 Received CULTURE BLOOD [BC] Stat Lab 10/21/20 12:27 Received Sodium Chloride 0.9% [Saline Flush] Med 10/21/20 11:48 Active 10 ml FLUSH ASDIRECTED PRN Blood Culture x2 Reflex Set [OM.PC] Stat Oth 10/21/20 11:48 Ordered Peripheral IV Insertion Adult [OM.PC] Stat Oth 10/21/20 11:49 Ordered Medication Orders Sodium Chloride (Saline Flush) 10 ml FLUSH ASDIRECTED PRN PRN Reason: Keep Vein Open Last Admin: 10/21/20 11:59 Dose: 10 ml Documented by: MERRY Labs: Laboratory Tests 10/21/20 10/21/20 10/21/20 Range/Units 11:59 11:59 11:59 WBC 11.4 H (5.0-10.0) 10^3/uL RBC 3.88 L (4.6-6.2) 10^6/uL Hgb 11.6 L (14.0-18.0) g/dL Hct 36.4 L (40.0-54.0) % MCV 93.8 D (80-100) fL MCH 29.9 (27.0-34.0) pg MCHC 31.9 L (33.0-35.0) g/dL Plt Count 228 (150-450) 10^3/uL Neut % (Auto) 89.6 H (42.2-75.2) % Lymph % (Auto) 2.8 L (20.5-50.1) % [place] % (Auto) 6.8 (2-8) % Eos % (Auto) 0.4 L (1.0-3.0) % Baso % (Auto) 0.4 (0.0-1.0) % ABG pH (7.35-7.45) ABG pCO2 (35-45) mmHg ABG pO2 (70-100) mmHg ABG HCO3 (22-26) mmol/L ABG O2 Saturation (95-100) % ABG Base Excess ((-2)-(+3)) mmol/L Ugo Test O2 Delivery Device Sodium 134 L (136-145) mmol/L Potassium 6.2 H D (3.5-5.1) mmol/L Chloride 98 (98-107) mmol/L Carbon Dioxide 24 (21-32) mmol/L Anion Gap 18.2 H (7-13) mEq/L BUN 91 H D (7-18) mg/dL Creatinine 5.02 H* D (0.70-1.30) mg/dL Est Cr Clr Drug Dosing TNP Estimated GFR (MDRD) 12 BUN/Creatinine Ratio 18.1 (No establ ref range) Glucose 120 H (74-99) mg/dL Lactic Acid 2.6 H* (0.4-2.0) mmol/L Calcium 9.2 (8.5-10.1) mg/dL Total Bilirubin 0.5 (0.2-1.0) mg/dL AST 17 (15-37) U/L ALT 16 (16-63) U/L Alkaline Phosphatase 100 (46-116) U/L Troponin I 0.048 (0.000-0.056) ng/mL C-Reactive Protein 4.7 H (0.0-0.9) mg/dL B-Natriuretic Peptide 1450 H (0-100) pg/ml Total Protein 6.9 (6.4-8.2) g/dL Albumin 3.7 (3.4-5.0) g/dL Globulin 3.2 Albumin/Globulin Ratio 1.2 SARS-CoV-2 RNA ([facility]) (NEGATIVE) 10/21/20 10/21/20 Range/Units 12:01 12:29 WBC (5.0-10.0) 10^3/uL RBC (4.6-6.2) 10^6/uL Hgb (14.0-18.0) g/dL Hct (40.0-54.0) % MCV (80-100) fL MCH (27.0-34.0) pg MCHC (33.0-35.0) g/dL Plt Count (150-450) 10^3/uL Neut % (Auto) (42.2-75.2) % Lymph % (Auto) (20.5-50.1) % [place] % (Auto) (2-8) % Eos % (Auto) (1.0-3.0) % Baso % (Auto) (0.0-1.0) % ABG pH 7.41 (7.35-7.45) ABG pCO2 35 (35-45) mmHg ABG pO2 79 (70-100) mmHg ABG HCO3 22.1 (22-26) mmol/L ABG O2 Saturation 94 L (95-100) % ABG Base Excess -2 ((-2)-(+3)) mmol/L Ugo Test Performed O2 Delivery Device Hi flow nasal cannu Sodium (136-145) mmol/L Potassium (3.5-5.1) mmol/L Chloride (98-107) mmol/L Carbon Dioxide (21-32) mmol/L Anion Gap (7-13) mEq/L BUN (7-18) mg/dL Creatinine (0.70-1.30) mg/dL Est Cr Clr Drug Dosing Estimated GFR (MDRD) BUN/Creatinine Ratio (No establ ref range) Glucose (74-99) mg/dL Lactic Acid (0.4-2.0) mmol/L Calcium (8.5-10.1) mg/dL Total Bilirubin (0.2-1.0) mg/dL AST (15-37) U/L ALT (16-63) U/L Alkaline Phosphatase (46-116) U/L Troponin I (0.000-0.056) ng/mL C-Reactive Protein (0.0-0.9) mg/dL B-Natriuretic Peptide (0-100) pg/ml Total Protein (6.4-8.2) g/dL Albumin (3.4-5.0) g/dL Globulin Albumin/Globulin Ratio SARS-CoV-2 RNA ([facility]OPEZ) Negative (NEGATIVE) Meds: Medications Generic Name Dose Route Start Last Admin Trade Name Freq PRN Reason Stop Dose Admin Sodium Chloride 10 ml 10/21/20 11:48 10/21/20 11:59 Saline Flush FLUSH 10 ml ASDIRECTED PRN Administration Keep Vein Open Discontinued Medications Generic Name Dose Route Start Last Admin Trade Name Freq PRN Reason Stop Dose Admin Albuterol/Ipratropium 3 ml 10/21/20 11:46 10/21/20 11:59 Duoneb 3.0-0.5 Mg/3 Ml NEB 10/21/20 11:47 3 ml ONETIME ONE Administration Furosemide 80 mg 10/21/20 11:47 10/21/20 12:17 Lasix IVPUSH 10/21/20 11:48 80 mg NOW ONE Administration Methylprednisolone Sodium Succinate 125 mg 10/21/20 11:46 10/21/20 12:13 Solu-Medrol IVPUSH 10/21/20 11:47 125 mg ONETIME ONE Administration Morphine Sulfate 2 mg 10/21/20 11:48 10/21/20 12:06 Morphine IVPUSH 10/21/20 11:49 2 mg ONETIME ONE Administration - Radiology Interpretation Free Text/Narrative:: XR Chest: chronic cardiomegaly, pulm. vascular congestion, no acute changes compared to 2019 study per Rad. report. Departure - Departure Time of Disposition: 13:02 Disposition: DC/Tfer to Acute Hospital 02 Condition: Fair, Serious Clinical Impression: COPD with exacerbation, CKD (chronic kidney disease) stage 5, GFR less than 15 ml/min Acute on chronic respiratory failure Qualifiers: Respiratory failure complication: hypoxia Qualified Code(s): J96.21 - Acute and chronic respiratory failure with hypoxia Acute exacerbation of congestive heart failure Qualifiers: Heart failure type: unspecified Qualified Code(s): I50.9 - Heart failure, unspecified - Discharge Information *PRESCRIPTION DRUG MONITORING PROGRAM REVIEWED*: Not Applicable *COPY OF PRESCRIPTION DRUG MONITORING REPORT IN PATIENT JU: Not Applicable Forms: ED Department Discharge, Interfacility Transfer EMTALA Sepsis Event Note (ED) - Focused Exam Vital Signs: Vital Signs Temp Pulse Resp BP Pulse Ox Pulse Ox 10/21/20 11:47 86 95 10/21/20 11:40 97.8 F 95 28 H 131/71 77 L - My Orders Last 24 Hours: My Active Orders 10/21/20 11:47 RT Aerosol Therapy [RC] ASDIRECTED 10/21/20 11:48 Sodium Chloride 0.9% [Saline Flush] 10 ml FLUSH ASDIRECTED PRN Blood Culture x2 Reflex Set [OM.PC] Stat 10/21/20 11:49 EKG 12 Lead [EKG Documentation Completion] [RC] STAT Peripheral IV Insertion Adult [OM.PC] Stat 10/21/20 11:50 Peripheral IV Care [RC] . DIRECTED 10/21/20 11:59 CULTURE BLOOD [BC] Stat 10/21/20 12:27 CULTURE BLOOD [BC] Stat - Assessment/Plan Last 24 Hours: My Active Orders 10/21/20 11:47 RT Aerosol Therapy [RC] ASDIRECTED 10/21/20 11:48 Sodium Chloride 0.9% [Saline Flush] 10 ml FLUSH ASDIRECTED PRN Blood Culture x2 Reflex Set [OM.PC] Stat 10/21/20 11:49 EKG 12 Lead [EKG Documentation Completion] [RC] STAT Peripheral IV Insertion Adult [OM.PC] Stat 10/21/20 11:50 Peripheral IV Care [RC] . DIRECTED 10/21/20 11:59 CULTURE BLOOD [BC] Stat 10/21/20 12:27 CULTURE BLOOD [BC] Stat
[2020-10-21] MEDS: Sodium Chloride 0.9% 10 ML Syringe FLUSH PRN (11:59)
[2020-10-21] MEDS: Albuterol/Ipratropium 3.0-0.5 MG/3 ML Neb Soln NEB ONE (11:59)
[2020-10-21] MEDS: Morphine 2 MG/ML SYRINGE IVPUSH ONE (12:06)
[2020-10-21] MEDS: methylPREDNISolone Sodium Succinate 125 MG/2 ML SDV IVPUSH ONE (12:13)
[2020-10-21] MEDS: Furosemide 100 MG/10 ML SDV IVPUSH ONE (12:17)
--- NOTE | 2020-10-21 12:19 | CR ---
EXAMINATION: Chest 1V Frontal SEX: Male AGE: 70 years CLINICAL HISTORY: 70-year-old male with history COPD and CHF who presents now with DYSPNEA and HYPOXIA. Comparison exam for July 11, 2020. Interpretation: 1. Chronic underlying cardiomegaly and generalized mild pulmonary vascular congestion but no new cephalization of flow, alveolar edema or dependent pleural fluid accumulation. 2. No new lung mass or hilar/mediastinal lymphadenopathy. 3. No abnormal new focal lobar consolidation (infiltrate/atelectasis), air bronchograms, or peripheral "groundglass" interstitial lung densities. 4. No pneumothorax or pneumomediastinum. No free subdiaphragmatic air. CONCLUSION: No new cardiopulmonary abnormality since 25 June 2020 exam.
[2020-10-21 12:29] LABS: ANION GAP 18.2 mEq/L (7-13); CHLORIDE,CL 98 mmol/L (98-107); SODIUM,NA 134 mmol/L (136-145)
[2020-10-21 12:34] LABS: ALLEN TEST PERFORMED; BASE EXCESS ARTERIAL -2 mmol/L ((-2)-(+3)); BICARBONATE,ARTERIAL 22.1 mmol/L (22-26); O2 DELIVERY DEVICE HI FLOW NASAL CANNU; O2 SATURATION ARTERIAL 94 % (95-100); PCO2 ARTERIAL 35 mmHg (35-45); PO2 ARTERIAL 79 mmHg (70-100)
== END 2020-10-21 13:40 ==
LOC: DL.ED 11:40
DX: J96.21 Acute and chronic respiratory failure with hypoxia (principal); J44.1 Chronic obstructive pulmonary disease with (acute) exacerbation; I13.2 Hypertensive heart and chronic kidney disease with heart failure and with stage 5 chronic kidney disease, or end stage renal disease; I50.9 Heart failure, unspecified; N18.5 Chronic kidney disease, stage 5; I25.10 Atherosclerotic heart disease of native coronary artery without angina pectoris; E66.9 Obesity, unspecified; Z87.891 Personal history of nicotine dependence; Z68.35 Body mass index [BMI] 35.0-35.9, adult; Z79.82 Long term (current) use of aspirin; Z79.02 Long term (current) use of antithrombotics/antiplatelets; Z79.899 Other long term (current) drug therapy; Z20.828 Contact with and (suspected) exposure to other viral communicable diseases
CPT/HCPCS: 36415; 36600; 71045; 80053; 82803; 83605; 83880; 84484; 85025; 86140; 87040; 93005; 94640; 96374; 96375; 99285; J1940; J2270; J2930; U0002; J7620-GY